=== PATIENT | female | born 1965 | race Caucasian/White ===

== ENCOUNTER 2016-05-12 13:51 | Emergency (ER) | payer BC ==
[~2016-05-12 13:51] MED LIST: ACET-654 PO; IBUP200C PO; OMEP40CA2 PO
--- NOTE | 2016-05-12 18:19 | EDDOCDS ---
Nurse's Notes [facility] Name: Jayleen Gilbert Age: 50 yrs Sex: Female : 1965 Arrival Date: 05/12/2016 Time: 13:51 Bed TR8 Private MD: Nataly [facility] Diagnosis: Inguinal hernia-RIGHT, FAT CONTAINING Presentation: 05/12 14:03 Presenting complaint: Patient states: she has had severe right sided abdominal pain kcs since Wednesday and now there is a lump there. Adult Sepsis Screening: The patient does not have new or worsening altered mentation. Patient's respiratory rate is less than 22. Systolic blood pressure is greater than 100. Patient has a qSOFA score of 0- Negative Sepsis Screen. Suicide/Homicide risk assessment- the patient denies having any suicidal and/or homicidal ideations and does not present with any other emotional, behavioral or mental health complaints. Status: Patient is not a director of cardiopulmonary services or dependent. Transition of care: patient was not received from another setting of care. 14:03 Acuity: YAN Level 3 kcs 14:03 Method Of Arrival: Walkin/Carried/Asstd kcs 18:09 Risk factors: the patient reports no vaginal bleeding. mk4 Triage Assessment: 14:06 General: Appears comfortable, well developed, well nourished, well groomed, Behavior is kcs cooperative, pleasant. Pain: Location: RLQ abdomen Pain currently is 5 out of 10 on a pain scale. Pt Declines HIV testing. Neurological: Level of Consciousness is awake, alert. Respiratory: Airway is patent Respiratory effort is even, unlabored, Respiratory pattern is regular, symmetrical. GI: Denies diarrhea, nausea, vomiting. Derm: Skin is intact, is healthy with good turgor, Skin is dry, Skin is normal. 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 Zyrtec 10 mg Oral tab 1 tab once daily as needed - PMHx: Seasonal Allergies; GERD; ectopic ; Endometriosis; - PSHx: Exploratory lap; - Social history: Smoking status: Patient uses tobacco products, light tobacco smoker. No barriers to communication noted, The patient speaks fluent Nepali. - Family history: Not pertinent. - : The pt / caregiver states he / she is not on anticoagulants. Home medication list is obtained from the patient. - Exposure Risk Screening:: None identified. Screenin:36 Screening information is obtained from the patient. Fall risk: No risks identified. mk4 Assistance ADL's: requires no assistance with activities of daily living. Abuse/DV Screen: The patient / caregiver reports he/she is: not in a situation that causes fear, pain or injury. Nutritional screening: No deficits noted. Advance Directives: Currently, there is no health care proxy. There is no active DNR order. There is no living will. There is no Power of Head Teller. Advance directive information has not previously been placed in an [facility] medical record. Further advance directive information is declined. home support is adequate. Assessment: 16:10 General: Appears in no apparent distress, pt placed in room from transit, first contact [facility] with pt , pt pleasant reading book, denies any needs or complaints awaiting Dr Shaw call return. 17:10 General: Appears in no apparent distress. Respiratory: Airway is patent Respiratory 4 effort is even, unlabored, Respiratory pattern is regular. 18:08 General: Appears in no apparent distress, comfortable, Behavior is cooperative. GI: mk4 Abdomen is flat, non- distended Bowel sounds present X 4 quads. Abd is soft and non tender. Derm: Skin is intact, is healthy with good turgor. Vital Signs: 13:54 BP 116 / 68; Pulse 66; Resp 18 S; Temp 97.4(O); Pulse Ox 100% on R/A; Weight 52.62 kg gr2 (M); Height 5 ft. 5 in. (165.10 cm) (M); Pain 8/10; 18:13 BP 125 / 72; Pulse 72; Resp 18; Temp 97.8; Pulse Ox 99% ; Pain 6/10; jam1 13:54 Body Mass Index 19.30 (52.62 kg, 165.10 cm) gr2 Vitals: 13:54 Log In Time: May 12, 2016 at 13:54. gr2 ED Course: 13:54 Patient visited by Marla Hutchison. gr2 13:54 [facility] is Private Physician. gr2 13:54 Patient moved to Waiting gr2 13:56 Patient visited by Marla Hutchison. gr2 13:56 Patient moved to Pre RCE gr2 14:04 Triage Initiated kcs 14:36 Patient moved to Triage 1 ar3 14:39 Maldonado Lutz PA is PHCP. btw 14:39 Jaqueline Thomas MD is Attending Physician. btw 14:39 Patient visited by Maldonado Lutz PA. btw 14:51 Patient moved to TR2 btw 15:02 Urine Culture Sent. ar3 15:02 Urinalysis Sent. ar3 15:21 PHCP role handed off by Maldonado Lutz PA ck7 15:21 Farooq Hewitt RPA-C is PHCP. ck7 15:23 Patient visited by Farooq Hewitt RPA-C. ck7 15:25 Patient moved to Ultrasound br3 16:09 Patient visited by Farooq Hewitt RPA-C. ck7 16:09 Patient moved to TR2 br3 16:09 Patient moved to I10 / 23 mb9 16:36 The patient / caregiver is instructed regarding the plan of care and ED course. mk4 16:36 No IV's were initiated during this patient's visit. No procedures done that require 4 assistance. 16:39 [facility] [place] Agreement was scanned into [employer] and attached to record. lg 16:40 Patient visited by Ying Luna RN. mk4 17:28 Patient visited by Ying Luna RN. mk4 17:42 Solo Shaw is Referral Physician. ck7 18:08 Patient moved to TR8 mk4 Order Results: Lab Order: Urinalysis; SPEC'M 05/12/16 14:52 Test: APPEARANCE, URINE; Value: CLEAR; Range: CLEAR; Status: F Test: COLOR, URINE; Value: STRAW; Range: YELLOW; Status: F Test: PH,URINE; Value: 6.0; Range: 5.0-9.0; Units: UNITS; Status: F Test: SPECIFIC GRAVITY URINE AUTO; Value: 1.003; Range: 1.002-1.035; Status: F Test: PROTEIN, URINE AUTO; Value: NEGATIVE; Range: NEGATIVE; Units: mg/dL; Status: F Test: GLUCOSE, URINE (UA) AUTO; Value: NEGATIVE; Range: NEGATIVE; Units: mg/dL; Status: F Test: KETONE, URINE AUTO; Value: NEGATIVE; Range: NEGATIVE; Units: mg/dL; Status: F Test: UROBILINOGEN, URINE AUTO; Value: 0.2; Range: 0.0-2.0; Units: mg/dL; Status: F Test: BILIRUBIN, URINE AUTO; Value: NEGATIVE; Range: NEGATIVE; Status: F Test: NITRITE, URINE AUTO; Value: NEGATIVE; Range: NEGATIVE; Status: F Test: LEUKOCYTE ESTERASE, URINE AUTO; Value: NEGATIVE; Range: NEGATIVE; Status: F Test: BLOOD, URINE BLOOD; Value: NEGATIVE; Range: NEGATIVE; Status: F Test: WBC, URINE AUTO; Value: 0; Range: 0-3; Units: /HPF; Status: F Test: RBC, URINE AUTO; Value: 1; Range: 0-3; Units: /HPF; Status: F Test: BACTERIA, URINE AUTO; Value: 1+; Range: NEGATIVE; Abnormal: Above high normal; Status: F Test: SQUAMOUS EPITHELIAL CELL UR AU; Value: 0; Range: 0-6; Units: /HPF; Status: F Test: HYALINE CAST, URINE AUTO; Value: 0; Range: 0-1; Units: /LPF; Status: F Outcome: 17:10 Discharge Assessment: Patient awake, alert and oriented x 3. No cognitive and/or mk4 functional deficits noted. Patient verbalized understanding of disposition instructions. Patient awake and alert. Discharge Assessment: patient administered narcotics - no. The following High Risk Discharge criteria are identified: None. Condition: good Condition: stable. No special radiology studies were completed. Property sent home with patient. 17:42 Discharge ordered by Provider. ck7 18:18 Patient left the ED. mk4 Signatures: Erika James, RN RN kcs Iliana Ramirez, GROCERY DELIVERER GROCERY DELIVERER jam1 Cirilo Trevino, River Reg lg Jayla Hutchison br3 Luz Elena Mendosa, GROCERY DELIVERER GROCERY DELIVERER ar3 Maldonado Lutz PA PA traciw Farooq Hewitt RPA-C RPA-Cck7 Marla Hutchsion gr2 Ying Luna RN RN mk4 Monroe Olivas,RN RN mb9 Corrections: (The following items were deleted from the chart) 16:37 16:10 General: Appears in no apparent distress, pt placed in room from transit, first mk4 contact with pt . mk4 MTDD
--- NOTE | 2016-05-12 18:19 | EDDOCDS ---
Physician Documentation [facility] Name: Jayleen Gilbert Age: 50 yrs Sex: Female : 1965 Arrival Date: 05/12/2016 Time: 13:51 Bed TR8 Private MD: Nataly [facility] Disposition: 05/12/16 17:42 Discharged to Home/Self Care. Impression: Inguinal hernia - RIGHT, FAT CONTAINING. - Condition is Stable. - Discharge Instructions: Inguinal Hernia, Adult. - Prescriptions for Tylenol- Codeine #3 300-30 mg Oral Tablet - take 2 tablets by ORAL route every 6 hours As needed MDD: 4 tabs; 20 tablet. - Medication Reconciliation, Local Pharmacy Hours form. - Follow up: Solo Hudson; When: 2 - 3 days; Reason: Recheck today's complaints, Continuance of care. - Problem is new. - Symptoms have improved. - Notes: RETURN TO THE ER IF THE SYMPTOMS WORSEN OR BECOME CONCERNING, FOLLOW UP WITH DR HUDSON IN NEXT 2-3 DAYS CALL FOR AN APPOINTMENT, USE MEDICATIONS NEEDED FOR PAIN Historical: - Allergies: Ceclor (Rash); - Home Meds: 1. Zyrtec 10 mg Oral tab 1 tab once daily as needed - PMHx: Seasonal Allergies; GERD; ectopic ; Endometriosis; - PSHx: Exploratory lap; - Social history: Smoking status: Patient uses tobacco products, light tobacco smoker. No barriers to communication noted, The patient speaks fluent [place]. - Family history: Not pertinent. - : The pt / caregiver states he / she is not on anticoagulants. Home medication list is obtained from the patient. - Exposure Risk Screening:: None identified. 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 5 in. (165.10 cm) (M); Pain 8/10; 18:13 BP 125 / 72; Pulse 72; Resp 18; Temp 97.8; Pulse Ox 99% ; Pain 6/10; jam1 13:54 Body Mass Index 19.30 (52.62 kg, 165.10 cm) gr2 MDM: 14:45 -US Pelvic Non-Ob Complete Ordered. EDMS 14:46 DUPLEX SCAN LIMITED (DOPPLER)+US Ordered. EDMS 14:46 Urinalysis Ordered. EDMS 14:46 Urine Culture Ordered. EDMS 14:49 Abdomen, limited US Ordered. EDMS 15:16 Financial registration complete. lg 15:37 Urinalysis Reviewed. ck7 16:39 [facility] [place] Payment Agreement was scanned into [employer] and attached to record. lg Signatures: Dispatcher [employer] EDMS Erika James, RN RN kcs Cirilo Trevino, Reg Reg lg Farooq Hewitt, RPA-C RPA-Cck7 Ying Luna RN RN mk4 The chart was reviewed and I authenticate all verbal orders and agree with the evaluation and treatment provided.Attachments: 16:39 [facility] Payment Agreement lg MTDD
--- NOTE | 2016-05-12 19:36 | REP ---
RIGHT INGUINAL ULTRASOUND: Right inguinal ultrasound is performed at the site of a palpable abnormality. Small rounded area of tissue and fluid is seen at that location measuring about 3 cm in diameter. This appears to communicate with the peritoneal cavity via a thin channel. No other adjacent abnormality is seen. There is no evidence of bowel within the structure. It is not reducible. IMPRESSION: Findings assessed above which appear to represent a small nonreducible right inguinal hernia containing fat and fluid but no bowel. This may represent a small incarcerated hernia at this location. Signed by Mario Sauer MD 05/13/2016 05:15 P
--- NOTE | 2016-05-12 19:56 | REP ---
PELVIC ULTRASOUND: Real-time sonographic evaluation of the pelvis performed utilizing transabdominal technique. The bladder measures 3.7 x 2.3 x 5.0 cm. Uterus measures 7.6 x 3.7 x 4.5 cm. Endometrial stripe measures 2 mm with no endometrial fluid collection. Ovaries are normal in size and echotexture, the right ovary measuring 2.4 x 2.0 x 2.6 cm and left ovary 2.4 x 1.9 x 2.1 cm. There is no adnexal mass or free fluid. There is no torsion. Blood flow is seen in each ovary with duplex Doppler evaluation, RI of the right ovary 0.56 and left ovary 0.70. Dominant follicle in the right ovary 1.9 cm in diameter and dominant follicle left ovary 1.9 cm in diameter. IMPRESSION: Negative pelvic ultrasound as discussed above. No torsion. Signed by Mario Sauer MD 05/13/2016 05:15 P
--- NOTE | 2016-05-14 19:18 | EDDOCDS ---
Physician Documentation [facility] Name: Jayleen Gilbert Age: 50 yrs Sex: Female : 1965 Arrival Date: 05/12/2016 Time: 13:51 Bed TR8 Private MD: Nataly [facility] Disposition: 05/12/16 17:42 Discharged to Home/Self Care. Impression: Inguinal hernia - RIGHT, FAT CONTAINING. - Condition is Stable. - Discharge Instructions: Inguinal Hernia, Adult. - Prescriptions for Tylenol- Codeine #3 300-30 mg Oral Tablet - take 2 tablets by ORAL route every 6 hours As needed MDD: 4 tabs; 20 tablet. - Medication Reconciliation, Local Pharmacy Hours form. - Follow up: Solo Hudson; When: 2 - 3 days; Reason: Recheck today's complaints, Continuance of care. - Problem is new. - Symptoms have improved. - Notes: RETURN TO THE ER IF THE SYMPTOMS WORSEN OR BECOME CONCERNING, FOLLOW UP WITH DR HUDSON IN NEXT 2-3 DAYS CALL FOR AN APPOINTMENT, USE MEDICATIONS NEEDED FOR PAIN Historical: - Allergies: Ceclor (Rash); - Home Meds: 1. Zyrtec 10 mg Oral tab 1 tab once daily as needed - PMHx: Seasonal Allergies; GERD; ectopic ; Endometriosis; - PSHx: Exploratory lap; - Social history: Smoking status: Patient uses tobacco products, light tobacco smoker. No barriers to communication noted, The patient speaks fluent Mohawk. - Family history: Not pertinent. - : The pt / caregiver states he / she is not on anticoagulants. Home medication list is obtained from the patient. - Exposure Risk Screening:: None identified. 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 5 in. (165.10 cm) (M); Pain 8/10; 18:13 BP 125 / 72; Pulse 72; Resp 18; Temp 97.8; Pulse Ox 99% ; Pain 6/10; jam1 13:54 Body Mass Index 19.30 (52.62 kg, 165.10 cm) gr2 MDM: 14:45 -US Pelvic Non-Ob Complete Ordered. EDMS 14:46 DUPLEX SCAN LIMITED (DOPPLER)+US Ordered. EDMS 14:46 Urinalysis Ordered. EDMS 14:46 Urine Culture Ordered. EDMS 14:49 Abdomen, limited US Ordered. EDMS 15:16 Financial registration complete. lg 15:37 Urinalysis Reviewed. ck7 16:39 [facility] [place] Payment Agreement was scanned into [employer] and attached to record. lg 05/13 09:26 T-Sheet-- Draft Copy was scanned into [employer] and attached to record. gb 09:27 Radiology Report was scanned into [employer] and attached to record. gb Signatures: Dispatcher [employer] Erika Sims, RN RN kcs Dalia Bennett, Reg Reg gb Cirilo Trevino, Reg Reg lg Farooq Hewitt, RPA-C RPA-Cck7 Ying Luna RN RN mk4 The chart was reviewed and I authenticate all verbal orders and agree with the evaluation and treatment provided.Attachments: 05/12 16:39 [facility] Payment Agreement lg 05/13 09:26 T-Sheet-- Draft Copy gb Chart Complete MTDD
--- NOTE | 2016-05-14 19:18 | EDDOCDS ---
Nurse's Notes [facility] Name: Jayleen Gilbert Age: 50 yrs Sex: Female : 1965 Arrival Date: 05/12/2016 Time: 13:51 Bed TR8 Private MD: [facility] Diagnosis: Inguinal hernia-RIGHT, FAT CONTAINING Presentation: 05/12 14:03 Presenting complaint: Patient states: she has had severe right sided abdominal pain kcs since Wednesday and now there is a lump there. Adult Sepsis Screening: The patient does not have new or worsening altered mentation. Patient's respiratory rate is less than 22. Systolic blood pressure is greater than 100. Patient has a qSOFA score of 0- Negative Sepsis Screen. Suicide/Homicide risk assessment- the patient denies having any suicidal and/or homicidal ideations and does not present with any other emotional, behavioral or mental health complaints. 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 Transition of care: patient was not received from another setting of care. 14:03 Acuity: YAN Level 3 kcs 14:03 Method Of Arrival: Walkin/Carried/Asstd kcs 18:09 Risk factors: the patient reports no vaginal bleeding. mk4 Triage Assessment: 14:06 General: Appears comfortable, well developed, well nourished, well groomed, Behavior is kcs cooperative, pleasant. Pain: Location: RLQ abdomen Pain currently is 5 out of 10 on a pain scale. Pt Declines HIV testing. Neurological: Level of Consciousness is awake, alert. Respiratory: Airway is patent Respiratory effort is even, unlabored, Respiratory pattern is regular, symmetrical. GI: Denies diarrhea, nausea, vomiting. Derm: Skin is intact, is healthy with good turgor, Skin is dry, Skin is normal. 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 Zyrtec 10 mg Oral tab 1 tab once daily as needed - PMHx: Seasonal Allergies; GERD; ectopic ; Endometriosis; - PSHx: Exploratory lap; - Social history: Smoking status: Patient uses tobacco products, light tobacco smoker. No barriers to communication noted, The patient speaks fluent Occitan. - Family history: Not pertinent. - : The pt / caregiver states he / she is not on anticoagulants. Home medication list is obtained from the patient. - Exposure Risk Screening:: None identified. Screenin:36 Screening information is obtained from the patient. Fall risk: No risks identified. mk4 Assistance ADL's: requires no assistance with activities of daily living. Abuse/DV Screen: The patient / caregiver reports he/she is: not in a situation that causes fear, pain or injury. Nutritional screening: No deficits noted. Advance Directives: Currently, there is no health care proxy. There is no active DNR order. There is no living will. There is no Power of Machine Overhauler. Advance directive information has not previously been placed in an [facility] medical record. Further advance directive information is declined. home support is adequate. Assessment: 16:10 General: Appears in no apparent distress, pt placed in room from transit, first contact [facility] with pt , pt pleasant reading book, denies any needs or complaints awaiting Dr Shaw call return. 17:10 General: Appears in no apparent distress. Respiratory: Airway is patent Respiratory 4 effort is even, unlabored, Respiratory pattern is regular. 18:08 General: Appears in no apparent distress, comfortable, Behavior is cooperative. GI: mk4 Abdomen is flat, non- distended Bowel sounds present X 4 quads. Abd is soft and non tender. Derm: Skin is intact, is healthy with good turgor. Vital Signs: 13:54 BP 116 / 68; Pulse 66; Resp 18 S; Temp 97.4(O); Pulse Ox 100% on R/A; Weight 52.62 kg gr2 (M); Height 5 ft. 5 in. (165.10 cm) (M); Pain 8/10; 18:13 BP 125 / 72; Pulse 72; Resp 18; Temp 97.8; Pulse Ox 99% ; Pain 6/10; jam1 13:54 Body Mass Index 19.30 (52.62 kg, 165.10 cm) gr2 Vitals: 13:54 Log In Time: May 12, 2016 at 13:54. gr2 ED Course: 13:54 Patient visited by Marla Hutchison. gr2 13:54 [facility] is Private Physician. gr2 13:54 Patient moved to Waiting gr2 13:56 Patient visited by Marla Hutchison. gr2 13:56 Patient moved to Pre RCE gr2 14:04 Triage Initiated kcs 14:36 Patient moved to Triage 1 ar3 14:39 Maldonado Lutz PA is PHCP. btw 14:39 Jaqueline Thomas MD is Attending Physician. btw 14:39 Patient visited by Maldonado Lutz PA. btw 14:51 Patient moved to TR2 btw 15:02 Urine Culture Sent. ar3 15:02 Urinalysis Sent. ar3 15:21 PHCP role handed off by Maldonado Lutz PA ck7 15:21 Farooq Hewitt RPA-C is PHCP. ck7 15:23 Patient visited by Farooq Hewitt RPA-C. ck7 15:25 Patient moved to Ultrasound br3 16:09 Patient visited by Farooq Hewitt RPA-C. ck7 16:09 Patient moved to TR2 br3 16:09 Patient moved to I10 / 23 mb9 16:36 The patient / caregiver is instructed regarding the plan of care and ED course. mk4 16:36 No IV's were initiated during this patient's visit. No procedures done that require [facility] assistance. 16:39 [facility] [place] Agreement was scanned into [employer] and attached to record. lg 16:40 Patient visited by Ying Luna RN. mk4 17:28 Patient visited by Ying Luna RN. mk4 17:42 Solo Shaw is Referral Physician. ck7 18:08 Patient moved to TR8 mk4 19:50 Abdomen, limited US Returned. EDMS 20:40 -US Pelvic Non-Ob Complete Returned. EDMS 20:40 DUPLEX SCAN LIMITED (DOPPLER)+US Returned. EDMS 0104 09:26 T-Sheet-- Draft Copy was scanned into [employer] and attached to record. gb 09:27 Radiology Report was scanned into [employer] and attached to record. gb Order Results: Lab Order: Urinalysis; SPEC'M 05/12/16 14:52 Test: APPEARANCE, URINE; Value: CLEAR; Range: CLEAR; Status: F Test: COLOR, URINE; Value: STRAW; Range: YELLOW; Status: F Test: PH,URINE; Value: 6.0; Range: 5.0-9.0; Units: UNITS; Status: F Test: SPECIFIC GRAVITY URINE AUTO; Value: 1.003; Range: 1.002-1.035; Status: F Test: PROTEIN, URINE AUTO; Value: NEGATIVE; Range: NEGATIVE; Units: mg/dL; Status: F Test: GLUCOSE, URINE (UA) AUTO; Value: NEGATIVE; Range: NEGATIVE; Units: mg/dL; Status: F Test: KETONE, URINE AUTO; Value: NEGATIVE; Range: NEGATIVE; Units: mg/dL; Status: F Test: UROBILINOGEN, URINE AUTO; Value: 0.2; Range: 0.0-2.0; Units: mg/dL; Status: F Test: BILIRUBIN, URINE AUTO; Value: NEGATIVE; Range: NEGATIVE; Status: F Test: NITRITE, URINE AUTO; Value: NEGATIVE; Range: NEGATIVE; Status: F Test: LEUKOCYTE ESTERASE, URINE AUTO; Value: NEGATIVE; Range: NEGATIVE; Status: F Test: BLOOD, URINE BLOOD; Value: NEGATIVE; Range: NEGATIVE; Status: F Test: WBC, URINE AUTO; Value: 0; Range: 0-3; Units: /HPF; Status: F Test: RBC, URINE AUTO; Value: 1; Range: 0-3; Units: /HPF; Status: F Test: BACTERIA, URINE AUTO; Value: 1+; Range: NEGATIVE; Abnormal: Above high normal; Status: F Test: SQUAMOUS EPITHELIAL CELL UR AU; Value: 0; Range: 0-6; Units: /HPF; Status: F Test: HYALINE CAST, URINE AUTO; Value: 0; Range: 0-1; Units: /LPF; Status: F Lab Order: Urine Culture; SPEC'M 05/12/16 14:52 Test: URINE CULTURE; Value: URINE CULTURE RESULT NO GROWTH; Status: F Radiology Order: -US Pelvic Non-Ob Complete Test: -US Pelvic Non-Ob Complete REASON FOR EXAMINATION: ? hernia;Adnexal Pain r/o Torsion; PELVIC ULTRASOUND:; ; Real-time sonographic evaluation of the pelvis performed utilizing transabdominal; technique. The bladder measures 3.7 x 2.3 x 5.0 cm. Uterus measures 7.6 x 3.7 x; 4.5 cm. Endometrial stripe measures 2 mm with no endometrial fluid collection.; Ovaries are normal in size and echotexture, the right ovary measuring 2.4 x 2.0 x; 2.6 cm and left ovary 2.4 x 1.9 x 2.1 cm. There is no adnexal mass or free fluid.; There is no torsion. Blood flow is seen in each ovary with duplex Doppler; evaluation, RI of the right ovary 0.56 and left ovary 0.70. Dominant follicle in; the right ovary 1.9 cm in diameter and dominant follicle left ovary 1.9 cm in; diameter.; ; IMPRESSION:; ; Negative pelvic ultrasound as discussed above. No torsion.; ; ; Signed by; Mario Sauer MD 05/13/2016 05:15 P; Radiology Order: DUPLEX SCAN LIMITED (DOPPLER)+US Test: DUPLEX SCAN LIMITED (DOPPLER)+US REASON FOR EXAMINATION: ? R inguinal hernia;Adnexal Pain r/o Torsion; PELVIC ULTRASOUND:; ; Real-time sonographic evaluation of the pelvis performed utilizing transabdominal; technique. The bladder measures 3.7 x 2.3 x 5.0 cm. Uterus measures 7.6 x 3.7 x; 4.5 cm. Endometrial stripe measures 2 mm with no endometrial fluid collection.; Ovaries are normal in size and echotexture, the right ovary measuring 2.4 x 2.0 x; 2.6 cm and left ovary 2.4 x 1.9 x 2.1 cm. There is no adnexal mass or free fluid.; There is no torsion. Blood flow is seen in each ovary with duplex Doppler; evaluation, RI of the right ovary 0.56 and left ovary 0.70. Dominant follicle in; the right ovary 1.9 cm in diameter and dominant follicle left ovary 1.9 cm in; diameter.; ; IMPRESSION:; ; Negative pelvic ultrasound as discussed above. No torsion.; ; ; Signed by; Mario Sauer MD 05/13/2016 05:15 P; Radiology Order: Abdomen, limited US Test: Abdomen, limited US REASON FOR EXAMINATION: ? HERNIA; RIGHT INGUINAL ULTRASOUND:; ; Right inguinal ultrasound is performed at the site of a palpable abnormality.; Small rounded area of tissue and fluid is seen at that location measuring about 3; cm in diameter. This appears to communicate with the peritoneal cavity via a thin; channel. No other adjacent abnormality is seen. There is no evidence of bowel; within the structure. It is not reducible.; ; IMPRESSION:; ; Findings assessed above which appear to represent a small nonreducible right; inguinal hernia containing fat and fluid but no bowel. This may represent a small; incarcerated hernia at this location.; ; ; Signed by; Mario Sauer MD 05/13/2016 05:15 P; Outcome: 05/12 17:10 Discharge Assessment: Patient awake, alert and oriented x 3. No cognitive and/or mk4 functional deficits noted. Patient verbalized understanding of disposition instructions. Patient awake and alert. Discharge Assessment: patient administered narcotics - no. The following High Risk Discharge criteria are identified: None. Condition: good Condition: stable. No special radiology studies were completed. Property sent home with patient. 17:42 Discharge ordered by Provider. ck7 18:18 Patient left the ED. mk4 Signatures: Dispatcher [employer] EDMS Erika James, RN RN kcs Iliana Ramirez, RISK COMPLIANCE ANALYST RISK COMPLIANCE ANALYST jam1 Dalia Bennett, Reg Reg gb Ganemiliano, LoriLee, Reg Reg lg Jayla Hutchison br3 Luz Elena Mendosa, RISK COMPLIANCE ANALYST RISK COMPLIANCE ANALYST ar3 Maldonado Lutz PA PA btw Farooq Hewitt, RPA-C RPA-Cck7 Marla Hutchison gr2 Ying Luna RN RN mk4 Monroe Olivas RN RN mb9 Corrections: (The following items were deleted from the chart) 16:37 16:10 General: Appears in no apparent distress, pt placed in room from transit, first mk4 contact with pt . mk4 Chart Complete MTDD
--- NOTE | 2016-05-14 19:18 | EDDOCDS ---
Physician Documentation [facility] Name: Jayleen Gilbert Age: 50 yrs Sex: Female : 1965 Arrival Date: 05/12/2016 Time: 13:51 Bed TR8 Private MD: Nataly [facility] Disposition: 05/12/16 17:42 Discharged to Home/Self Care. Impression: Inguinal hernia - RIGHT, FAT CONTAINING. - Condition is Stable. - Discharge Instructions: Inguinal Hernia, Adult. - Prescriptions for Tylenol- Codeine #3 300-30 mg Oral Tablet - take 2 tablets by ORAL route every 6 hours As needed MDD: 4 tabs; 20 tablet. - Medication Reconciliation, Local Pharmacy Hours form. - Follow up: Solo Hudson; When: 2 - 3 days; Reason: Recheck today's complaints, Continuance of care. - Problem is new. - Symptoms have improved. - Notes: RETURN TO THE ER IF THE SYMPTOMS WORSEN OR BECOME CONCERNING, FOLLOW UP WITH DR HUDSON IN NEXT 2-3 DAYS CALL FOR AN APPOINTMENT, USE MEDICATIONS NEEDED FOR PAIN Historical: - Allergies: Ceclor (Rash); - Home Meds: 1. Zyrtec 10 mg Oral tab 1 tab once daily as needed - PMHx: Seasonal Allergies; GERD; ectopic ; Endometriosis; - PSHx: Exploratory lap; - Social history: Smoking status: Patient uses tobacco products, light tobacco smoker. No barriers to communication noted, The patient speaks fluent Bengali. - Family history: Not pertinent. - : The pt / caregiver states he / she is not on anticoagulants. Home medication list is obtained from the patient. - Exposure Risk Screening:: None identified. 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 5 in. (165.10 cm) (M); Pain 8/10; 18:13 BP 125 / 72; Pulse 72; Resp 18; Temp 97.8; Pulse Ox 99% ; Pain 6/10; jam1 13:54 Body Mass Index 19.30 (52.62 kg, 165.10 cm) gr2 MDM: 14:45 -US Pelvic Non-Ob Complete Ordered. EDMS 14:46 DUPLEX SCAN LIMITED (DOPPLER)+US Ordered. EDMS 14:46 Urinalysis Ordered. EDMS 14:46 Urine Culture Ordered. EDMS 14:49 Abdomen, limited US Ordered. EDMS 15:16 Financial registration complete. lg 15:37 Urinalysis Reviewed. ck7 16:39 [facility] [place] Agreement was scanned into [employer] and attached to record. lg 05/13 09:26 T-Sheet-- Draft Copy was scanned into [employer] and attached to record. gb 09:27 Radiology Report was scanned into [employer] and attached to record. gb Signatures: Dispatcher [employer] Erika Sims, RN RN kcs Dalia Bennett, Reg Reg gb Cirilo Trevino, Reg Reg lg Farooq Hewitt, RPA-C RPA-Cck7 Ying Luna RN RN mk4 The chart was reviewed and I authenticate all verbal orders and agree with the evaluation and treatment provided.Attachments: 05/12 16:39 [facility] Payment Agreement lg 05/13 09:26 T-Sheet-- Draft Copy gb Chart Complete MTDD
--- NOTE | 2016-05-15 21:19 | EDDOCDS ---
Physician Documentation [facility] Name: Jayleen Gilbert Age: 50 yrs Sex: Female : 1965 Arrival Date: 05/12/2016 Time: 13:51 Bed TR8 Private MD: Nataly [facility] Disposition: 05/12/16 17:42 Discharged to Home/Self Care. Impression: Inguinal hernia - RIGHT, FAT CONTAINING. - Condition is Stable. - Discharge Instructions: Inguinal Hernia, Adult. - Prescriptions for Tylenol- Codeine #3 300-30 mg Oral Tablet - take 2 tablets by ORAL route every 6 hours As needed MDD: 4 tabs; 20 tablet. - Medication Reconciliation, Local Pharmacy Hours form. - Follow up: Solo Valencia; When: 2 - 3 days; Reason: Recheck today's complaints, Continuance of care. - Problem is new. - Symptoms have improved. - Notes: RETURN TO THE ER IF THE SYMPTOMS WORSEN OR BECOME CONCERNING, FOLLOW UP WITH DR VALENCIA IN NEXT 2-3 DAYS CALL FOR AN APPOINTMENT, USE MEDICATIONS NEEDED FOR PAIN Historical: - Allergies: Ceclor (Rash); - Home Meds: 1. Zyrtec 10 mg Oral tab 1 tab once daily as needed - PMHx: Seasonal Allergies; GERD; ectopic ; Endometriosis; - PSHx: Exploratory lap; - Social history: Smoking status: Patient uses tobacco products, light tobacco smoker. No barriers to communication noted, The patient speaks fluent Macedonian. - Family history: Not pertinent. - : The pt / caregiver states he / she is not on anticoagulants. Home medication list is obtained from the patient. - Exposure Risk Screening:: None identified. 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 5 in. (165.10 cm) (M); Pain 8/10; 18:13 BP 125 / 72; Pulse 72; Resp 18; Temp 97.8; Pulse Ox 99% ; Pain 6/10; jam1 13:54 Body Mass Index 19.30 (52.62 kg, 165.10 cm) gr2 MDM: 14:45 -US Pelvic Non-Ob Complete Ordered. EDMS 14:46 DUPLEX SCAN LIMITED (DOPPLER)+US Ordered. EDMS 14:46 Urinalysis Ordered. EDMS 14:46 Urine Culture Ordered. EDMS 14:49 Abdomen, limited US Ordered. EDMS 15:16 Financial registration complete. lg 15:37 Urinalysis Reviewed. ck7 16:39 [facility] [place] Payment Agreement was scanned into [employer] and attached to record. lg 05/13 09:26 T-Sheet-- Draft Copy was scanned into [employer] and attached to record. gb 09:27 Radiology Report was scanned into [employer] and attached to record. gb Addendum: 05/15/2016 21:18 Radiology Callback: Radiology results faxed to primary care physician/provider. dr flakita valencia faxed formal report of abdl us for mlg. Signatures: Dispatcher [employer] EDCarla Padilla MD MD ml Sleeman, Kacey, RN RN Dalia Gary, Reg Reg gb Cirilo Trevino, Reg Reg lg Farooq Hewitt, RPA-C RPA-Cck7 Ying Luna, RN RN mk4 The chart was reviewed and I authenticate all verbal orders and agree with the evaluation and treatment provided.Attachments: 05/12 16:39 [facility] [place] Payment Agreement lg 05/13 09:26 T-Sheet-- Draft Copy gb MTDD
--- NOTE | 2016-05-15 21:19 | EDDOCDS ---
Nurse's Notes [facility] Name: Jayleen Gilbert Age: 50 yrs Sex: Female : 1965 Arrival Date: 05/12/2016 Time: 13:51 Bed TR8 Private MD: Nataly [facility]ly [facility], [facility] Diagnosis: Inguinal hernia-RIGHT, FAT CONTAINING Presentation: 05/12 14:03 Presenting complaint: Patient states: she has had severe right sided abdominal pain kcs since Wednesday and now there is a lump there. Adult Sepsis Screening: The patient does not have new or worsening altered mentation. Patient's respiratory rate is less than 22. Systolic blood pressure is greater than 100. Patient has a qSOFA score of 0- Negative Sepsis Screen. Suicide/Homicide risk assessment- the patient denies having any suicidal and/or homicidal ideations and does not present with any other emotional, behavioral or mental health complaints. Status: Patient is not a resident services coordinator or dependent. Transition of care: patient was not received from another setting of care. 14:03 Acuity: YAN Level 3 kcs 14:03 Method Of Arrival: Walkin/Carried/Asstd kcs 18:09 Risk factors: the patient reports no vaginal bleeding. mk4 Triage Assessment: 14:06 General: Appears comfortable, well developed, well nourished, well groomed, Behavior is kcs cooperative, pleasant. Pain: Location: RLQ abdomen Pain currently is 5 out of 10 on a pain scale. Pt Declines HIV testing. Neurological: Level of Consciousness is awake, alert. Respiratory: Airway is patent Respiratory effort is even, unlabored, Respiratory pattern is regular, symmetrical. GI: Denies diarrhea, nausea, vomiting. Derm: Skin is intact, is healthy with good turgor, Skin is dry, Skin is normal. 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 Zyrtec 10 mg Oral tab 1 tab once daily as needed - PMHx: Seasonal Allergies; GERD; ectopic ; Endometriosis; - PSHx: Exploratory lap; - Social history: Smoking status: Patient uses tobacco products, light tobacco smoker. No barriers to communication noted, The patient speaks fluent Albanian. - Family history: Not pertinent. - : The pt / caregiver states he / she is not on anticoagulants. Home medication list is obtained from the patient. - Exposure Risk Screening:: None identified. Screenin:36 Screening information is obtained from the patient. Fall risk: No risks identified. mk4 Assistance ADL's: requires no assistance with activities of daily living. Abuse/DV Screen: The patient / caregiver reports he/she is: not in a situation that causes fear, pain or injury. Nutritional screening: No deficits noted. Advance Directives: Currently, there is no health care proxy. There is no active DNR order. There is no living will. 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 Advance directive information has not previously been placed in an [facility] medical record. Further advance directive information is declined. home support is adequate. Assessment: 16:10 General: Appears in no apparent distress, pt placed in room from transit, first contact [facility] with pt , pt pleasant reading book, denies any needs or complaints awaiting Dr Shaw call return. 17:10 General: Appears in no apparent distress. Respiratory: Airway is patent Respiratory 4 effort is even, unlabored, Respiratory pattern is regular. 18:08 General: Appears in no apparent distress, comfortable, Behavior is cooperative. GI: mk4 Abdomen is flat, non- distended Bowel sounds present X 4 quads. Abd is soft and non tender. Derm: Skin is intact, is healthy with good turgor. Vital Signs: 13:54 BP 116 / 68; Pulse 66; Resp 18 S; Temp 97.4(O); Pulse Ox 100% on R/A; Weight 52.62 kg gr2 (M); Height 5 ft. 5 in. (165.10 cm) (M); Pain 8/10; 18:13 BP 125 / 72; Pulse 72; Resp 18; Temp 97.8; Pulse Ox 99% ; Pain 6/10; jam1 13:54 Body Mass Index 19.30 (52.62 kg, 165.10 cm) gr2 Vitals: 13:54 Log In Time: May 12, 2016 at 13:54. gr2 ED Course: 13:54 Patient visited by Marla Hutchison. gr2 13:54 [facility] is Private Physician. gr2 13:54 Patient moved to Waiting gr2 13:56 Patient visited by Marla Hutchison. gr2 13:56 Patient moved to Pre RCE gr2 14:04 Triage Initiated kcs 14:36 Patient moved to Triage 1 ar3 14:39 Maldonado Lutz PA is PHCP. btw 14:39 Jaqueline Thomas MD is Attending Physician. btw 14:39 Patient visited by Maldonado Lutz PA. btw 14:51 Patient moved to TR2 btw 15:02 Urine Culture Sent. ar3 15:02 Urinalysis Sent. ar3 15:21 PHCP role handed off by Malodnado Lutz PA ck7 15:21 Farooq Hewitt RPA-C is PHCP. ck7 15:23 Patient visited by Farooq Hewitt RPA-C. ck7 15:25 Patient moved to Ultrasound br3 16:09 Patient visited by Farooq Hewitt RPA-C. ck7 16:09 Patient moved to TR2 br3 16:09 Patient moved to I10 / 23 mb9 16:36 The patient / caregiver is instructed regarding the plan of care and ED course. mk4 16:36 No IV's were initiated during this patient's visit. No procedures done that require [facility] assistance. 16:39 [facility] Payment Agreement was scanned into [employer] and attached to record. lg 16:40 Patient visited by Ying Luna RN. mk4 17:28 Patient visited by Ying Luna RN. mk4 17:42 Solo Shaw is Referral Physician. ck7 18:08 Patient moved to TR8 mk4 19:50 Abdomen, limited US Returned. EDMS 20:40 -US Pelvic Non-Ob Complete Returned. EDMS 20:40 DUPLEX SCAN LIMITED (DOPPLER)+US Returned. EDMS 0104 09:26 T-Sheet-- Draft Copy was scanned into [employer] and attached to record. gb 09:27 Radiology Report was scanned into [employer] and attached to record. gb Order Results: Lab Order: Urinalysis; SPEC'M 05/12/16 14:52 Test: APPEARANCE, URINE; Value: CLEAR; Range: CLEAR; Status: F Test: COLOR, URINE; Value: STRAW; Range: YELLOW; Status: F Test: PH,URINE; Value: 6.0; Range: 5.0-9.0; Units: UNITS; Status: F Test: SPECIFIC GRAVITY URINE AUTO; Value: 1.003; Range: 1.002-1.035; Status: F Test: PROTEIN, URINE AUTO; Value: NEGATIVE; Range: NEGATIVE; Units: mg/dL; Status: F Test: GLUCOSE, URINE (UA) AUTO; Value: NEGATIVE; Range: NEGATIVE; Units: mg/dL; Status: F Test: KETONE, URINE AUTO; Value: NEGATIVE; Range: NEGATIVE; Units: mg/dL; Status: F Test: UROBILINOGEN, URINE AUTO; Value: 0.2; Range: 0.0-2.0; Units: mg/dL; Status: F Test: BILIRUBIN, URINE AUTO; Value: NEGATIVE; Range: NEGATIVE; Status: F Test: NITRITE, URINE AUTO; Value: NEGATIVE; Range: NEGATIVE; Status: F Test: LEUKOCYTE ESTERASE, URINE AUTO; Value: NEGATIVE; Range: NEGATIVE; Status: F Test: BLOOD, URINE BLOOD; Value: NEGATIVE; Range: NEGATIVE; Status: F Test: WBC, URINE AUTO; Value: 0; Range: 0-3; Units: /HPF; Status: F Test: RBC, URINE AUTO; Value: 1; Range: 0-3; Units: /HPF; Status: F Test: BACTERIA, URINE AUTO; Value: 1+; Range: NEGATIVE; Abnormal: Above high normal; Status: F Test: SQUAMOUS EPITHELIAL CELL UR AU; Value: 0; Range: 0-6; Units: /HPF; Status: F Test: HYALINE CAST, URINE AUTO; Value: 0; Range: 0-1; Units: /LPF; Status: F Lab Order: Urine Culture; SPEC'M 05/12/16 14:52 Test: URINE CULTURE; Value: URINE CULTURE RESULT NO GROWTH; Status: F Radiology Order: -US Pelvic Non-Ob Complete Test: -US Pelvic Non-Ob Complete REASON FOR EXAMINATION: ? hernia;Adnexal Pain r/o Torsion; PELVIC ULTRASOUND:; ; Real-time sonographic evaluation of the pelvis performed utilizing transabdominal; technique. The bladder measures 3.7 x 2.3 x 5.0 cm. Uterus measures 7.6 x 3.7 x; 4.5 cm. Endometrial stripe measures 2 mm with no endometrial fluid collection.; Ovaries are normal in size and echotexture, the right ovary measuring 2.4 x 2.0 x; 2.6 cm and left ovary 2.4 x 1.9 x 2.1 cm. There is no adnexal mass or free fluid.; There is no torsion. Blood flow is seen in each ovary with duplex Doppler; evaluation, RI of the right ovary 0.56 and left ovary 0.70. Dominant follicle in; the right ovary 1.9 cm in diameter and dominant follicle left ovary 1.9 cm in; diameter.; ; IMPRESSION:; ; Negative pelvic ultrasound as discussed above. No torsion.; ; ; Signed by; Mario Sauer MD 05/13/2016 05:15 P; Radiology Order: DUPLEX SCAN LIMITED (DOPPLER)+US Test: DUPLEX SCAN LIMITED (DOPPLER)+US REASON FOR EXAMINATION: ? R inguinal hernia;Adnexal Pain r/o Torsion; PELVIC ULTRASOUND:; ; Real-time sonographic evaluation of the pelvis performed utilizing transabdominal; technique. The bladder measures 3.7 x 2.3 x 5.0 cm. Uterus measures 7.6 x 3.7 x; 4.5 cm. Endometrial stripe measures 2 mm with no endometrial fluid collection.; Ovaries are normal in size and echotexture, the right ovary measuring 2.4 x 2.0 x; 2.6 cm and left ovary 2.4 x 1.9 x 2.1 cm. There is no adnexal mass or free fluid.; There is no torsion. Blood flow is seen in each ovary with duplex Doppler; evaluation, RI of the right ovary 0.56 and left ovary 0.70. Dominant follicle in; the right ovary 1.9 cm in diameter and dominant follicle left ovary 1.9 cm in; diameter.; ; IMPRESSION:; ; Negative pelvic ultrasound as discussed above. No torsion.; ; ; Signed by; Mario Sauer MD 05/13/2016 05:15 P; Radiology Order: Abdomen, limited US Test: Abdomen, limited US REASON FOR EXAMINATION: ? HERNIA; RIGHT INGUINAL ULTRASOUND:; ; Right inguinal ultrasound is performed at the site of a palpable abnormality.; Small rounded area of tissue and fluid is seen at that location measuring about 3; cm in diameter. This appears to communicate with the peritoneal cavity via a thin; channel. No other adjacent abnormality is seen. There is no evidence of bowel; within the structure. It is not reducible.; ; IMPRESSION:; ; Findings assessed above which appear to represent a small nonreducible right; inguinal hernia containing fat and fluid but no bowel. This may represent a small; incarcerated hernia at this location.; ; ; Signed by; Mario Sauer MD 05/13/2016 05:15 P; Outcome: 05/12 17:10 Discharge Assessment: Patient awake, alert and oriented x 3. No cognitive and/or mk4 functional deficits noted. Patient verbalized understanding of disposition instructions. Patient awake and alert. Discharge Assessment: patient administered narcotics - no. The following High Risk Discharge criteria are identified: None. Condition: good Condition: stable. No special radiology studies were completed. Property sent home with patient. 17:42 Discharge ordered by Provider. ck7 18:18 Patient left the ED. mk4 Signatures: Dispatcher [employer] EDMS Erika James, RN RN kcs Iliana Ramirez, ECO INDUSTRIAL DEVELOPMENT CONSULTANT ECO INDUSTRIAL DEVELOPMENT CONSULTANT jam1 Dalia Bennett, Reg Reg gb Ganemiliano, LoriLee, Reg Reg lg Jayla Hutchison br3 Luz Elena Mendosa, ECO INDUSTRIAL DEVELOPMENT CONSULTANT ECO INDUSTRIAL DEVELOPMENT CONSULTANT ar3 Maldonado Lutz PA PA btw Farooq Hewitt, RPA-C RPA-Cck7 Marla Hutchison gr2 Ying Luna RN RN mk4 Monroe Olivas RN RN mb9 Corrections: (The following items were deleted from the chart) 16:37 16:10 General: Appears in no apparent distress, pt placed in room from transit, first mk4 contact with pt . mk4 MTDD
--- NOTE | 2016-05-15 21:19 | EDDOCDS ---
Physician Documentation [facility] Name: Jayleen Gilbert Age: 50 yrs Sex: Female : 1965 Arrival Date: 05/12/2016 Time: 13:51 Bed TR8 Private MD: Nataly [facility] Disposition: 05/12/16 17:42 Discharged to Home/Self Care. Impression: Inguinal hernia - RIGHT, FAT CONTAINING. - Condition is Stable. - Discharge Instructions: Inguinal Hernia, Adult. - Prescriptions for Tylenol- Codeine #3 300-30 mg Oral Tablet - take 2 tablets by ORAL route every 6 hours As needed MDD: 4 tabs; 20 tablet. - Medication Reconciliation, Local Pharmacy Hours form. - Follow up: Solo Valencia; When: 2 - 3 days; Reason: Recheck today's complaints, Continuance of care. - Problem is new. - Symptoms have improved. - Notes: RETURN TO THE ER IF THE SYMPTOMS WORSEN OR BECOME CONCERNING, FOLLOW UP WITH DR VALENCIA IN NEXT 2-3 DAYS CALL FOR AN APPOINTMENT, USE MEDICATIONS NEEDED FOR PAIN Historical: - Allergies: Ceclor (Rash); - Home Meds: 1. Zyrtec 10 mg Oral tab 1 tab once daily as needed - PMHx: Seasonal Allergies; GERD; ectopic ; Endometriosis; - PSHx: Exploratory lap; - Social history: Smoking status: Patient uses tobacco products, light tobacco smoker. No barriers to communication noted, The patient speaks fluent Greenlandic. - Family history: Not pertinent. - : The pt / caregiver states he / she is not on anticoagulants. Home medication list is obtained from the patient. - Exposure Risk Screening:: None identified. 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 5 in. (165.10 cm) (M); Pain 8/10; 18:13 BP 125 / 72; Pulse 72; Resp 18; Temp 97.8; Pulse Ox 99% ; Pain 6/10; jam1 13:54 Body Mass Index 19.30 (52.62 kg, 165.10 cm) gr2 MDM: 14:45 -US Pelvic Non-Ob Complete Ordered. EDMS 14:46 DUPLEX SCAN LIMITED (DOPPLER)+US Ordered. EDMS 14:46 Urinalysis Ordered. EDMS 14:46 Urine Culture Ordered. EDMS 14:49 Abdomen, limited US Ordered. EDMS 15:16 Financial registration complete. lg 15:37 Urinalysis Reviewed. ck7 16:39 [facility] Payment Agreement was scanned into [employer] and attached to record. lg 05/13 09:26 T-Sheet-- Draft Copy was scanned into [employer] and attached to record. gb 09:27 Radiology Report was scanned into [facility] and attached to record. gb Addendum: 05/15/2016 21:18 Radiology Callback: Radiology results faxed to primary care physician/provider. dr flakita valencia faxed formal report of abdl us for mlg. Signatures: Dispatcher [employer] EDCarla Padilla MD MD ml Sleeman, Kacey, RN RN Dalia Gary, Reg Reg gb Cirilo Trevino, Reg Reg lg Farooq Hewitt, RPA-C RPA-Cck7 Ying Luna, RN RN mk4 The chart was reviewed and I authenticate all verbal orders and agree with the evaluation and treatment provided.Attachments: 05/12 16:39 [facility] Payment Agreement lg 05/13 09:26 T-Sheet-- Draft Copy gb MTDD
--- NOTE | 2016-05-15 21:21 | EDDOCDS ---
Physician Documentation [facility] Name: Jayleen Gilbert Age: 50 yrs Sex: Female : 1965 Arrival Date: 05/12/2016 Time: 13:51 Bed TR8 Private MD: Nataly [facility] Disposition: 05/12/16 17:42 Discharged to Home/Self Care. Impression: Inguinal hernia - RIGHT, FAT CONTAINING. - Condition is Stable. - Discharge Instructions: Inguinal Hernia, Adult. - Prescriptions for Tylenol- Codeine #3 300-30 mg Oral Tablet - take 2 tablets by ORAL route every 6 hours As needed MDD: 4 tabs; 20 tablet. - Medication Reconciliation, Local Pharmacy Hours form. - Follow up: Solo Valencia; When: 2 - 3 days; Reason: Recheck today's complaints, Continuance of care. - Problem is new. - Symptoms have improved. - Notes: RETURN TO THE ER IF THE SYMPTOMS WORSEN OR BECOME CONCERNING, FOLLOW UP WITH DR VALENCIA IN NEXT 2-3 DAYS CALL FOR AN APPOINTMENT, USE MEDICATIONS NEEDED FOR PAIN Historical: - Allergies: Ceclor (Rash); - Home Meds: 1. Zyrtec 10 mg Oral tab 1 tab once daily as needed - PMHx: Seasonal Allergies; GERD; ectopic ; Endometriosis; - PSHx: Exploratory lap; - Social history: Smoking status: Patient uses tobacco products, light tobacco smoker. No barriers to communication noted, The patient speaks fluent Albanian. - Family history: Not pertinent. - : The pt / caregiver states he / she is not on anticoagulants. Home medication list is obtained from the patient. - Exposure Risk Screening:: None identified. 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 5 in. (165.10 cm) (M); Pain 8/10; 18:13 BP 125 / 72; Pulse 72; Resp 18; Temp 97.8; Pulse Ox 99% ; Pain 6/10; jam1 13:54 Body Mass Index 19.30 (52.62 kg, 165.10 cm) gr2 MDM: 14:45 -US Pelvic Non-Ob Complete Ordered. EDMS 14:46 DUPLEX SCAN LIMITED (DOPPLER)+US Ordered. EDMS 14:46 Urinalysis Ordered. EDMS 14:46 Urine Culture Ordered. EDMS 14:49 Abdomen, limited US Ordered. EDMS 15:16 Financial registration complete. lg 15:37 Urinalysis Reviewed. ck7 16:39 [facility] [place] Agreement was scanned into [employer] and attached to record. lg 05/13 09:26 T-Sheet-- Draft Copy was scanned into [employer] and attached to record. gb 09:27 Radiology Report was scanned into [employer] and attached to record. gb Addendum: 05/15/2016 21:18 Radiology Callback: Radiology results faxed to primary care physician/provider. dr flakita valencia faxed formal report of abdl us for mlg. Signatures: Dispatcher [employer] EDCarla Padilla MD MD ml Sleeman, Kacey, RN RN Dalia Gary, Reg Reg gb Cirlio Trevino, Reg Reg lg Farooq Hewitt, RPA-C RPA-Cck7 Ying Luna, RN RN mk4 The chart was reviewed and I authenticate all verbal orders and agree with the evaluation and treatment provided.Attachments: 05/12 16:39 [facility] [place] Agreement lg 05/13 09:26 T-Sheet-- Draft Copy gb Chart Complete MTDD
--- NOTE | 2016-05-15 21:21 | EDDOCDS ---
Nurse's Notes [facility] [employer] Name: Jayleen Gilbert Age: 50 yrs Sex: Female : 1965 Arrival Date: 05/12/2016 Time: 13:51 Bed TR8 Private MD: [facility] Diagnosis: Inguinal hernia-RIGHT, FAT CONTAINING Presentation: 05/12 14:03 Presenting complaint: Patient states: she has had severe right sided abdominal pain kcs since Wednesday and now there is a lump there. Adult Sepsis Screening: The patient does not have new or worsening altered mentation. Patient's respiratory rate is less than 22. Systolic blood pressure is greater than 100. Patient has a qSOFA score of 0- Negative Sepsis Screen. Suicide/Homicide risk assessment- the patient denies having any suicidal and/or homicidal ideations and does not present with any other emotional, behavioral or mental health complaints. 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 Transition of care: patient was not received from another setting of care. 14:03 Acuity: YAN Level 3 kcs 14:03 Method Of Arrival: Walkin/Carried/Asstd kcs 18:09 Risk factors: the patient reports no vaginal bleeding. mk4 Triage Assessment: 14:06 General: Appears comfortable, well developed, well nourished, well groomed, Behavior is kcs cooperative, pleasant. Pain: Location: RLQ abdomen Pain currently is 5 out of 10 on a pain scale. Pt Declines HIV testing. Neurological: Level of Consciousness is awake, alert. Respiratory: Airway is patent Respiratory effort is even, unlabored, Respiratory pattern is regular, symmetrical. GI: Denies diarrhea, nausea, vomiting. Derm: Skin is intact, is healthy with good turgor, Skin is dry, Skin is normal. 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 Zyrtec 10 mg Oral tab 1 tab once daily as needed - PMHx: Seasonal Allergies; GERD; ectopic ; Endometriosis; - PSHx: Exploratory lap; - Social history: Smoking status: Patient uses tobacco products, light tobacco smoker. No barriers to communication noted, The patient speaks fluent Serbian. - Family history: Not pertinent. - : The pt / caregiver states he / she is not on anticoagulants. Home medication list is obtained from the patient. - Exposure Risk Screening:: None identified. Screenin:36 Screening information is obtained from the patient. Fall risk: No risks identified. mk4 Assistance ADL's: requires no assistance with activities of daily living. Abuse/DV Screen: The patient / caregiver reports he/she is: not in a situation that causes fear, pain or injury. Nutritional screening: No deficits noted. Advance Directives: Currently, there is no health care proxy. There is no active DNR order. There is no living will. 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 Advance directive information has not previously been placed in an [facility] medical record. Further advance directive information is declined. home support is adequate. Assessment: 16:10 General: Appears in no apparent distress, pt placed in room from transit, first contact [facility] with pt , pt pleasant reading book, denies any needs or complaints awaiting Dr Shaw call return. 17:10 General: Appears in no apparent distress. Respiratory: Airway is patent Respiratory 4 effort is even, unlabored, Respiratory pattern is regular. 18:08 General: Appears in no apparent distress, comfortable, Behavior is cooperative. GI: mk4 Abdomen is flat, non- distended Bowel sounds present X 4 quads. Abd is soft and non tender. Derm: Skin is intact, is healthy with good turgor. Vital Signs: 13:54 BP 116 / 68; Pulse 66; Resp 18 S; Temp 97.4(O); Pulse Ox 100% on R/A; Weight 52.62 kg gr2 (M); Height 5 ft. 5 in. (165.10 cm) (M); Pain 8/10; 18:13 BP 125 / 72; Pulse 72; Resp 18; Temp 97.8; Pulse Ox 99% ; Pain 6/10; jam1 13:54 Body Mass Index 19.30 (52.62 kg, 165.10 cm) gr2 Vitals: 13:54 Log In Time: May 12, 2016 at 13:54. gr2 ED Course: 13:54 Patient visited by Marla Hutchison. gr2 13:54 [facility] is Private Physician. gr2 13:54 Patient moved to Waiting gr2 13:56 Patient visited by Marla Hutchison. gr2 13:56 Patient moved to Pre RCE gr2 14:04 Triage Initiated kcs 14:36 Patient moved to Triage 1 ar3 14:39 Maldonado Lutz PA is PHCP. btw 14:39 Jaqueilne Thomas MD is Attending Physician. btw 14:39 Patient visited by Maldonado Lutz PA. btw 14:51 Patient moved to TR2 btw 15:02 Urine Culture Sent. ar3 15:02 Urinalysis Sent. ar3 15:21 PHCP role handed off by Maldonado Lutz PA ck7 15:21 Farooq Hewitt RPA-C is PHCP. ck7 15:23 Patient visited by Farooq Hewitt RPA-C. ck7 15:25 Patient moved to Ultrasound br3 16:09 Patient visited by Farooq Hewitt RPA-C. ck7 16:09 Patient moved to TR2 br3 16:09 Patient moved to I10 / 23 mb9 16:36 The patient / caregiver is instructed regarding the plan of care and ED course. mk4 16:36 No IV's were initiated during this patient's visit. No procedures done that require [facility] assistance. 16:39 [facility] Payment Agreement was scanned into [employer] and attached to record. lg 16:40 Patient visited by Ying Luna RN. mk4 17:28 Patient visited by Ying Luna RN. mk4 17:42 Solo Shaw is Referral Physician. ck7 18:08 Patient moved to TR8 mk4 19:50 Abdomen, limited US Returned. EDMS 20:40 -US Pelvic Non-Ob Complete Returned. EDMS 20:40 DUPLEX SCAN LIMITED (DOPPLER)+US Returned. EDMS 0104 09:26 T-Sheet-- Draft Copy was scanned into [employer] and attached to record. gb 09:27 Radiology Report was scanned into [employer] and attached to record. gb Order Results: Lab Order: Urinalysis; SPEC'M 05/12/16 14:52 Test: APPEARANCE, URINE; Value: CLEAR; Range: CLEAR; Status: F Test: COLOR, URINE; Value: STRAW; Range: YELLOW; Status: F Test: PH,URINE; Value: 6.0; Range: 5.0-9.0; Units: UNITS; Status: F Test: SPECIFIC GRAVITY URINE AUTO; Value: 1.003; Range: 1.002-1.035; Status: F Test: PROTEIN, URINE AUTO; Value: NEGATIVE; Range: NEGATIVE; Units: mg/dL; Status: F Test: GLUCOSE, URINE (UA) AUTO; Value: NEGATIVE; Range: NEGATIVE; Units: mg/dL; Status: F Test: KETONE, URINE AUTO; Value: NEGATIVE; Range: NEGATIVE; Units: mg/dL; Status: F Test: UROBILINOGEN, URINE AUTO; Value: 0.2; Range: 0.0-2.0; Units: mg/dL; Status: F Test: BILIRUBIN, URINE AUTO; Value: NEGATIVE; Range: NEGATIVE; Status: F Test: NITRITE, URINE AUTO; Value: NEGATIVE; Range: NEGATIVE; Status: F Test: LEUKOCYTE ESTERASE, URINE AUTO; Value: NEGATIVE; Range: NEGATIVE; Status: F Test: BLOOD, URINE BLOOD; Value: NEGATIVE; Range: NEGATIVE; Status: F Test: WBC, URINE AUTO; Value: 0; Range: 0-3; Units: /HPF; Status: F Test: RBC, URINE AUTO; Value: 1; Range: 0-3; Units: /HPF; Status: F Test: BACTERIA, URINE AUTO; Value: 1+; Range: NEGATIVE; Abnormal: Above high normal; Status: F Test: SQUAMOUS EPITHELIAL CELL UR AU; Value: 0; Range: 0-6; Units: /HPF; Status: F Test: HYALINE CAST, URINE AUTO; Value: 0; Range: 0-1; Units: /LPF; Status: F Lab Order: Urine Culture; SPEC'M 05/12/16 14:52 Test: URINE CULTURE; Value: URINE CULTURE RESULT NO GROWTH; Status: F Radiology Order: -US Pelvic Non-Ob Complete Test: -US Pelvic Non-Ob Complete REASON FOR EXAMINATION: ? hernia;Adnexal Pain r/o Torsion; PELVIC ULTRASOUND:; ; Real-time sonographic evaluation of the pelvis performed utilizing transabdominal; technique. The bladder measures 3.7 x 2.3 x 5.0 cm. Uterus measures 7.6 x 3.7 x; 4.5 cm. Endometrial stripe measures 2 mm with no endometrial fluid collection.; Ovaries are normal in size and echotexture, the right ovary measuring 2.4 x 2.0 x; 2.6 cm and left ovary 2.4 x 1.9 x 2.1 cm. There is no adnexal mass or free fluid.; There is no torsion. Blood flow is seen in each ovary with duplex Doppler; evaluation, RI of the right ovary 0.56 and left ovary 0.70. Dominant follicle in; the right ovary 1.9 cm in diameter and dominant follicle left ovary 1.9 cm in; diameter.; ; IMPRESSION:; ; Negative pelvic ultrasound as discussed above. No torsion.; ; ; Signed by; Mario Sauer MD 05/13/2016 05:15 P; Radiology Order: DUPLEX SCAN LIMITED (DOPPLER)+US Test: DUPLEX SCAN LIMITED (DOPPLER)+US REASON FOR EXAMINATION: ? R inguinal hernia;Adnexal Pain r/o Torsion; PELVIC ULTRASOUND:; ; Real-time sonographic evaluation of the pelvis performed utilizing transabdominal; technique. The bladder measures 3.7 x 2.3 x 5.0 cm. Uterus measures 7.6 x 3.7 x; 4.5 cm. Endometrial stripe measures 2 mm with no endometrial fluid collection.; Ovaries are normal in size and echotexture, the right ovary measuring 2.4 x 2.0 x; 2.6 cm and left ovary 2.4 x 1.9 x 2.1 cm. There is no adnexal mass or free fluid.; There is no torsion. Blood flow is seen in each ovary with duplex Doppler; evaluation, RI of the right ovary 0.56 and left ovary 0.70. Dominant follicle in; the right ovary 1.9 cm in diameter and dominant follicle left ovary 1.9 cm in; diameter.; ; IMPRESSION:; ; Negative pelvic ultrasound as discussed above. No torsion.; ; ; Signed by; Mario Sauer MD 05/13/2016 05:15 P; Radiology Order: Abdomen, limited US Test: Abdomen, limited US REASON FOR EXAMINATION: ? HERNIA; RIGHT INGUINAL ULTRASOUND:; ; Right inguinal ultrasound is performed at the site of a palpable abnormality.; Small rounded area of tissue and fluid is seen at that location measuring about 3; cm in diameter. This appears to communicate with the peritoneal cavity via a thin; channel. No other adjacent abnormality is seen. There is no evidence of bowel; within the structure. It is not reducible.; ; IMPRESSION:; ; Findings assessed above which appear to represent a small nonreducible right; inguinal hernia containing fat and fluid but no bowel. This may represent a small; incarcerated hernia at this location.; ; ; Signed by; Mario Sauer MD 05/13/2016 05:15 P; Outcome: 05/12 17:10 Discharge Assessment: Patient awake, alert and oriented x 3. No cognitive and/or mk4 functional deficits noted. Patient verbalized understanding of disposition instructions. Patient awake and alert. Discharge Assessment: patient administered narcotics - no. The following High Risk Discharge criteria are identified: None. Condition: good Condition: stable. No special radiology studies were completed. Property sent home with patient. 17:42 Discharge ordered by Provider. ck7 18:18 Patient left the ED. mk4 Signatures: Dispatcher [employer] EDMS Erika James, RN RN kcs Iliana Ramirez, HONING MACHINE OPERATOR PRODUCTION HONING MACHINE OPERATOR PRODUCTION jam1 Dalia Bennett, Reg Reg gb Ganemiliano, LoriLee, Reg Reg lg Jayla Hutchison br3 Luz Elena Mendosa, HONING MACHINE OPERATOR PRODUCTION HONING MACHINE OPERATOR PRODUCTION ar3 Maldonado Lutz PA PA btw Farooq Hewitt, RPA-C RPA-Cck7 Marla Hutchison gr2 Ying Luna RN RN mk4 Monroe Olivas RN RN mb9 Corrections: (The following items were deleted from the chart) 16:37 16:10 General: Appears in no apparent distress, pt placed in room from transit, first mk4 contact with pt . mk4 Chart Complete MTDD
--- NOTE | 2016-05-15 21:21 | EDDOCDS ---
Physician Documentation [facility] Name: Jayleen Gilbert Age: 50 yrs Sex: Female : 1965 Arrival Date: 05/12/2016 Time: 13:51 Bed TR8 Private MD: [facility] Disposition: 05/12/16 17:42 Discharged to Home/Self Care. Impression: Inguinal hernia - RIGHT, FAT CONTAINING. - Condition is Stable. - Discharge Instructions: Inguinal Hernia, Adult. - Prescriptions for Tylenol- Codeine #3 300-30 mg Oral Tablet - take 2 tablets by ORAL route every 6 hours As needed MDD: 4 tabs; 20 tablet. - Medication Reconciliation, Local Pharmacy Hours form. - Follow up: Solo Valencia; When: 2 - 3 days; Reason: Recheck today's complaints, Continuance of care. - Problem is new. - Symptoms have improved. - Notes: RETURN TO THE ER IF THE SYMPTOMS WORSEN OR BECOME CONCERNING, FOLLOW UP WITH DR VALENCIA IN NEXT 2-3 DAYS CALL FOR AN APPOINTMENT, USE MEDICATIONS NEEDED FOR PAIN Historical: - Allergies: Ceclor (Rash); - Home Meds: 1. Zyrtec 10 mg Oral tab 1 tab once daily as needed - PMHx: Seasonal Allergies; GERD; ectopic ; Endometriosis; - PSHx: Exploratory lap; - Social history: Smoking status: Patient uses tobacco products, light tobacco smoker. No barriers to communication noted, The patient speaks fluent Bulgarian. - Family history: Not pertinent. - : The pt / caregiver states he / she is not on anticoagulants. Home medication list is obtained from the patient. - Exposure Risk Screening:: None identified. 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 5 in. (165.10 cm) (M); Pain 8/10; 18:13 BP 125 / 72; Pulse 72; Resp 18; Temp 97.8; Pulse Ox 99% ; Pain 6/10; jam1 13:54 Body Mass Index 19.30 (52.62 kg, 165.10 cm) gr2 MDM: 14:45 -US Pelvic Non-Ob Complete Ordered. EDMS 14:46 DUPLEX SCAN LIMITED (DOPPLER)+US Ordered. EDMS 14:46 Urinalysis Ordered. EDMS 14:46 Urine Culture Ordered. EDMS 14:49 Abdomen, limited US Ordered. EDMS 15:16 Financial registration complete. lg 15:37 Urinalysis Reviewed. ck7 16:39 [facility] Payment Agreement was scanned into [employer] and attached to record. lg 05/13 09:26 T-Sheet-- Draft Copy was scanned into [email or web address] and attached to record. gb 09:27 Radiology Report was scanned into [email or web address] and attached to record. gb Addendum: 05/15/2016 21:18 Radiology Callback: Radiology results faxed to primary care physician/provider. dr flakita valencia faxed formal report of abdl us for mlg. Signatures: Dispatcher [employer] EDCarla Padilla MD MD ml Sleeman, Kacey, RN RN Dalia Gary, Reg Reg gb Cirilo Trevino, Reg Reg lg Farooq Hewitt, RPA-C RPA-Cck7 Ying Luna, RN RN mk4 The chart was reviewed and I authenticate all verbal orders and agree with the evaluation and treatment provided.Attachments: 05/12 16:39 [facility] Payment Agreement lg 05/13 09:26 T-Sheet-- Draft Copy gb Chart Complete MTDD
== END 2016-05-12 18:18 | disposition home or self-care (01) ==
LOC: M ED 13:51
DX: K40.90 Unilateral inguinal hernia, without obstruction or gangrene, not specified as recurrent (principal); J30.9 Allergic rhinitis, unspecified; K21.9 Gastro-esophageal reflux disease without esophagitis; N80.9 Endometriosis, unspecified; Z79.899 Other long term (current) drug therapy; Z88.1 Allergy status to other antibiotic agents; F17.210 Nicotine dependence, cigarettes, uncomplicated

== ENCOUNTER → 2016-06-01 | Day surgery (SDC) | payer BC ==
[~2016-06-01] VITALS: Ht 165.1 cm; Wt 54.0 kg
[~2016-06-01] MED LIST changes: +BUPIVACAINE/EPIN 0.25% 30 ML VIAL As Ordered ONE; +CLINDAMYCIN 600 MG in APPROPRIATE DILUENT 1 EA IV ONE; +GLYCOPYRROLATE INJ 0.2 MG/ML 2 ML VIAL As Ordered ONE; +KETOROLAC 60 MG/2 ML VIAL (J1885) As Ordered ONE; +LIDOCAINE 2% INJ 100 MG/5 ML SDV (FOR ANES.) As Ordered ONE; +LR 1,000 ML IV SCH; +METOCLOPRAMIDE INJ 10MG/2ML VIAL (J2765) IV PRN; +MIDAZOLAM INJ 2 MG/2 ML VIAL (J2250) As Ordered ONE; +MORPHINE 2 MG/ML 1ML SYRINGE IV PRN; +NEOSTIGMINE 1MG/ML 5 ML SYRINGE (J2710) As Ordered ONE; +NORCO, ANEXSIA 5/325MG TABLET (HYDROcodone/ACETAMINOPHEN) PO PRN; +ONDANSETRON 4MG/2ML VIAL (J2405) As Ordered ONE; +ONDANSETRON 4MG/2ML VIAL (J2405) IV PRN; +PERCOCET 5MG/325MG TAB PO PRN; +PROPOFOL 200 MG/20 ML VIAL As Ordered ONE; +ROCURONIUM BROMIDE 50 MG/5 ML VIAL As Ordered ONE; +ZYRT10CA PO; +dexameTHASONE 4 MG/ML 1ML VIAL (J1100) As Ordered ONE; +fentaNYL 100 MCG/2 ML INJECTION (J3010) As Ordered ONE
[2016-06-01] MEDS: fentaNYL 100 MCG/2 ML INJECTION (J3010) IV PRN ×3 (10:45→11:00)
--- NOTE | 2016-06-01 10:52 | RO ---
DATE OF PROCEDURE: 06/01/2016 PREOPERATIVE DIAGNOSIS: Incarcerated right inguinal hernia. POSTOPERATIVE DIAGNOSIS: Incarcerated right femoral hernia. PROCEDURE: Open repair of incarcerated right femoral hernia with mesh SURGEON: Dr. Whyte SPLICER OPERATOR: Dr. Clinton ANESTHESIA: General. ESTIMATED BLOOD LOSS (EBL): 5. COMPLICATION: None. INDICATION FOR PROCEDURE: Patient is a 50-year-old female who awoke about a month ago with a hard lump in the right groin that is extremely painful. She went to the emergency room (ER), had an ultrasound completed, which showed right inguinal hernia. When I saw her in the office, she had a hard lump that was very tender in the right groin. Recommendation was to proceed with open repair, Due to her history of (C) section, she was not a candidate for a laparoscopic repair. Risks and benefits of procedure not limited but including bleeding, infection, hernia formation, hernia recurrence, damage to surrounding structures, need for further surgery were discussed in detail with the patient. Informed consent was obtained and procedure was planned. DESCRIPTION OF PROCEDURE: Patient brought back to operating room #8. After sufficient sedation, the right groin was sterilely prepped and draped and a Lei catheter was placed. Next, a time-out was done to confirm proper patient and proper procedure. Following that a 4 cm incision was created in the right groin overlying this palpable lump. Incision was carried down right on top of the lump using electrocautery. Once this was completed, the lump was very hard. It was able to be circumscribed at the base of it. There was about a 1 cm neck going underneath the inguinal ligament heading inside of the peritoneal cavity. The neck was encircled and suture ligated with a #1 Prolene suture. Once that was completed, the hernia sac was amputated. The neck of the hernia was reduced back inside of the abdomen. A Bard PerFix plug was then taken, placed inside of the 1 cm defect, sutured in place with #0 Vicryl interrupted sutures to hold it in place. The subcutaneous tissues were then reapproximated over top it with #3-0 Vicryl suture, followed by running layer of #3-0 chromic and the subcutaneous tissues, and a running #4-0 Vicryl subcuticular suture approximated the skin edges. Steri-Strips, 4 x 4 and tape were then applied, thus ending procedure. MTDD
[2016-06-01 12:16] VITALS: BP 117/59
== END ==
LOC: M SDC 07:30
PROVIDERS: ATTEND Surgery
DX: K41.30 Unilateral femoral hernia, with obstruction, without gangrene, not specified as recurrent (principal); K21.9 Gastro-esophageal reflux disease without esophagitis; E16.2 Hypoglycemia, unspecified; J30.9 Allergic rhinitis, unspecified; F17.210 Nicotine dependence, cigarettes, uncomplicated; Z88.1 Allergy status to other antibiotic agents; Z79.899 Other long term (current) drug therapy
CPT/HCPCS: 49553; 88302; C1781; J1100; J1885; J2250; J2405; J2710; J3010

== ENCOUNTER → 2016-10-23 | Outpatient (CLI) | payer BC ==
[~2016-10-23] MED LIST changes: -BUPIVACAINE/EPIN 0.25% 30 ML VIAL As Ordered ONE; -CLINDAMYCIN 600 MG in APPROPRIATE DILUENT 1 EA IV ONE; -GLYCOPYRROLATE INJ 0.2 MG/ML 2 ML VIAL As Ordered ONE; -KETOROLAC 60 MG/2 ML VIAL (J1885) As Ordered ONE; -LIDOCAINE 2% INJ 100 MG/5 ML SDV (FOR ANES.) As Ordered ONE; -LR 1,000 ML IV SCH; -METOCLOPRAMIDE INJ 10MG/2ML VIAL (J2765) IV PRN; -MIDAZOLAM INJ 2 MG/2 ML VIAL (J2250) As Ordered ONE; -MORPHINE 2 MG/ML 1ML SYRINGE IV PRN; -NEOSTIGMINE 1MG/ML 5 ML SYRINGE (J2710) As Ordered ONE; -NORCO, ANEXSIA 5/325MG TABLET (HYDROcodone/ACETAMINOPHEN) PO PRN; -ONDANSETRON 4MG/2ML VIAL (J2405) As Ordered ONE; -ONDANSETRON 4MG/2ML VIAL (J2405) IV PRN; -PERCOCET 5MG/325MG TAB PO PRN; -PROPOFOL 200 MG/20 ML VIAL As Ordered ONE; -ROCURONIUM BROMIDE 50 MG/5 ML VIAL As Ordered ONE; -dexameTHASONE 4 MG/ML 1ML VIAL (J1100) As Ordered ONE; -fentaNYL 100 MCG/2 ML INJECTION (J3010) As Ordered ONE
== END ==
LOC: M RAD 15:29
PROVIDERS: ATTEND Family Medicine
DX: Z53.8 Procedure and treatment not carried out for other reasons (principal)

== ENCOUNTER → 2016-10-30 | Outpatient (CLI) | payer BC | LOC: M RAD 16:07 | PROVIDERS: ATTEND Family Medicine | DX: Z53.8 Procedure and treatment not carried out for other reasons (principal); N63 Unspecified lump in breast ==

== ENCOUNTER → 2016-11-13 | Outpatient (CLI) | payer BC ==
[~2016-11-13] MED LIST changes: -ACET-654 PO; +ACET1TAB17 PO; -IBUP200C PO; +IBUP200C10 PO
--- NOTE | 2016-11-13 16:24 | REP ---
Digital diagnostic bilateral mammography with CAD: History: Left breast lump. The patient states of the lump has been present since May of this year indicating larger. Comparison mammography 01/04/2015, 04/12/2012, 07/24/2009. Findings: A skin marker is affixed to the skin at the site of the lump and routine views of the left breast are augmented by magnified focal spot compression MLO and laterally exaggerated CC views as well as the non magnified true MLO view. The upper outer quadrant left breast skin marker is seen over a homogeneous completely fat density oval-shaped lesion 3.6 x 2.2 x 3.8 cm in diameter. This is compatible with a benign lipoma. This is visible in retrospect on the MLO views prior studies and is gradually getting larger. No soft tissue density is seen. No architectural distortion or suspicious microcalcification is observed on either side. No worrisome skin change is seen. Impression: BIRADS category II benign bilateral mammography. A benign appearing 3.8 cm lipoma is seen corresponding to the palpable lump near the left axilla in the upper outer quadrant. This should not dissuade one from biopsy of a palpable lump depending on its clinical characteristics. Clinical follow-up is advised. Annual screening mammography can be continued. This mammogram was interpreted with the aid of an FDA-approved computer-aided detection system. The patient states she/he had a clinical breast exam in October 2016. The patient letter being requested is M2. Signed by Shad Salazar MD 11/13/2016 04:41 P
== END ==
LOC: M RAD 15:27
PROVIDERS: ATTEND Nurse Practitioner Women's Health
DX: D17.9 Benign lipomatous neoplasm, unspecified (principal)

== ENCOUNTER → 2016-12-04 | Outpatient (REF) | payer BC | LOC: M SFHCWAGY 15:16 | PROVIDERS: ATTEND Family Medicine | DX: Z12.4 Encounter for screening for malignant neoplasm of cervix (principal) ==

== ENCOUNTER 2017-09-11 13:15 | Emergency (ER) | payer BC ==
[2017-09-11] MEDS ORDERED: LIDOCAINE 1% MDV 20ML VIAL SC (14:00)
[2017-09-11] MEDS: LIDOCAINE 1% MDV 20ML VIAL SC (14:00)
[2017-09-11] MEDS: CLINDAMYCIN 150 MG CAP PO (14:49)
[2017-09-11] MEDS: ADACEL/BOOSTRIX VACCINE (DIPHTH/PERTUSS/ACELL/TETANUS)0.5ML SYR (90715) IM (14:50)
== END 2017-09-11 15:15 | disposition home or self-care (01) ==
LOC: M ED 13:15
DX: S61.412A Laceration without foreign body of left hand, initial encounter (principal); W27.8XXA Contact with other nonpowered hand tool, initial encounter; Y92.098 Other place in other non-institutional residence as the place of occurrence of the external cause; F17.200 Nicotine dependence, unspecified, uncomplicated; Z88.1 Allergy status to other antibiotic agents
CPT/HCPCS: 90715

== ENCOUNTER → 2018-02-25 | Outpatient (CLI) | payer BC | LOC: M WHC 15:05 | DX: Z12.31 Encounter for screening mammogram for malignant neoplasm of breast (principal) | CPT/HCPCS: 77067 ==

== ENCOUNTER → 2018-02-25 | Outpatient (REF) | payer BC | LOC: M SFHCWAGY 15:11 | DX: Z12.4 Encounter for screening for malignant neoplasm of cervix (principal); Z12.31 Encounter for screening mammogram for malignant neoplasm of breast | CPT/HCPCS: G0123 ==

== ENCOUNTER → 2018-06-18 | Outpatient (CLI) | payer BC ==
[~2018-06-18] MED LIST changes: -ACET1TAB17 PO; +ACET1TAB55 PO; +CLIN150C14 PO; -IBUP200C10 PO; +IBUP200C25 PO
== END ==
LOC: M ADAMS 15:40
PROVIDERS: ATTEND Physician Assistant Medical
DX: R35.0 Frequency of micturition (principal); F17.219 Nicotine dependence, cigarettes, with unspecified nicotine-induced disorders; R14.0 Abdominal distension (gaseous); R10.30 Lower abdominal pain, unspecified; K21.9 Gastro-esophageal reflux disease without esophagitis

== ENCOUNTER → 2018-06-18 | Outpatient (REF) | payer BC ==
[2018-06-18 19:39] LABS: BASO # 0.1 10^3/uL (0.0-0.2); EOS # 0.6 10^3/uL (0.0-0.50); EOS % 6.3 % (0.0-3.0); HEMATOCRIT 42.1 % (36.0-47.0); HEMOGLOBIN 13.3 g/dl (12.0-15.5); LYMPH # 3.6 10^3/uL (1.5-4.5); LYMPH % 37.8 % (24.0-44.0); MEAN CORPUSCULAR HEMOGLOBIN 31.1 pg (27.0-33.0); MEAN CORPUSCULAR HGB CONC 31.6 g/dl (32.0-36.5); MEAN CORPUSCULAR VOLUME 98.6 fl (80.0-96.0); MONO # 0.5 10^3/uL (0.0-0.8); MONO % 5.4 % (0.0-5.0); NEUTROPHILS # 4.7 10^3/uL (1.8-7.7); NEUTROPHILS % 49.2 % (36.0-66.0); PLATELET COUNT, AUTOMATED 394 10^3/uL (150-450); RED BLOOD COUNT 4.27 10^6/uL (4.00-5.40); WHITE BLOOD COUNT 9.5 10^3/uL (4.0-10.0)
[2018-06-18 19:43] LABS: APPEARANCE, URINE TURBID (CLEAR); BACTERIA, URINE AUTO 3+ (NEGATIVE); BILIRUBIN, URINE AUTO NEGATIVE (NEGATIVE); BLOOD, URINE BLOOD 1+ (NEGATIVE); CALCIUM OXALATE CRYSTALS MODERATE; COLOR, URINE AMBER (YELLOW); GLUCOSE, URINE (UA) AUTO NEGATIVE (NEGATIVE); KETONE, URINE AUTO NEGATIVE (NEGATIVE); LEUKOCYTE ESTERASE, URINE AUTO NEGATIVE (NEGATIVE); MUCUS, URINE SMALL (NEGATIVE); NITRITE, URINE AUTO NEGATIVE (NEGATIVE); PROTEIN, URINE AUTO NEGATIVE (NEGATIVE); RBC, URINE AUTO 0 /HPF (0-3); SPECIFIC GRAVITY URINE AUTO 1.019 (1.002-1.035); SQUAMOUS EPITHELIAL CELL UR AU 0 /HPF (0-6); UROBILINOGEN, URINE AUTO 0.2 mg/dL (0.0-2.0); WBC, URINE AUTO 1 /HPF (0-3)
[2018-06-18 19:52] LABS: ALBUMIN 3.8 GM/DL (3.2-5.2); ALT/SGPT 21 U/L (12-78); BILIRUBIN,TOTAL 0.4 MG/DL (0.2-1.0); BLOOD UREA NITROGEN 14 MG/DL (7-18); CALCIUM LEVEL 8.6 MG/DL (8.5-10.1); CARBON DIOXIDE LEVEL 30 MEQ/L (21-32); CHLORIDE LEVEL 106 MEQ/L (98-107); CHOLESTEROL LEVEL 212 MG/DL (<200); CHOLESTEROL RISK RATIO 2.944 (<5); CREATININE FOR GFR 0.87 MG/DL (0.55-1.30); GLOMERULAR FILTRATION RATE > 60.0 (>51); GLUCOSE, FASTING 77 MG/DL (70-100); HDL CHOLESTEROL 72 MG/DL (>40); LDL CHOLESTEROL 125 MG/DL (<100); NON-HDL-C 140 MG/DL; SODIUM LEVEL 141 MEQ/L (136-145); TOTAL PROTEIN 6.8 GM/DL (6.4-8.2); TRIGLYCERIDES LEVEL 74 MG/DL (<150)
[2018-06-20 10:04] LABS: TOTAL 25(OH) VITAMIN D 21.9 NG/ML (30.0-100.0)
== END ==
LOC: M SFHCADAM 08:38
PROVIDERS: ATTEND Physician Assistant Medical
DX: R35.0 Frequency of micturition (principal); F17.219 Nicotine dependence, cigarettes, with unspecified nicotine-induced disorders; R14.0 Abdominal distension (gaseous); R10.30 Lower abdominal pain, unspecified; K21.9 Gastro-esophageal reflux disease without esophagitis; E55.9 Vitamin D deficiency, unspecified

== ENCOUNTER → 2018-09-20 | Outpatient (CLI) | payer BC ==
--- NOTE | 2018-09-20 07:27 | REP ---
Clinical: Right upper quadrant pain. Technique: Real time eduardo scale and color evaluation using curved array transducer. Findings: Liver and pancreas are normal in contour, size, and echogenicity without focal hepatic or pancreatic lesions identified. The gallbladder is normal and without gallstones, wall thickening, or pericholecystic fluid. No biliary ductal dilatation is appreciated and the common bile duct measures 3.9 mm diameter. The right kidney is normal in reniform shape without hydronephrosis and measures 9.7 x 4.6 x 5.1 cm. Abdominal aorta normal. No ascites in the right upper quadrant. Impression: Normal right upper quadrant ultrasound. Electronically Signed by Jimenez Alvarado MD 09/20/2018 07:18 A
== END ==
LOC: M RAD 06:36
PROVIDERS: ATTEND Physician Assistant Medical
DX: R10.11 Right upper quadrant pain (principal)

== ENCOUNTER → 2019-03-03 | Outpatient (CLI) | payer BC ==
[~2019-03-03] MED LIST changes: -OMEP40CA2 PO; +OMEP40CA97 PO
--- NOTE | 2019-03-03 15:08 | REPMRS ---
Patient History The patient states she has not had a clinical breast exam in over a year. Patient is postmenopausal. No known family history of cancer. No Hormone Replacement Therapy 3D TOMOSYNTHESIS WAS PERFORMED. [facility] 7.[facility]%. Digital Woman Screen Mammo: March 03, 2019 - Exam #: [id number] Bilateral CC and MLO view(s) were taken. Technologist: Nemo Yu, Technologist Prior study comparison: February 25, 2018, bilateral digital woman screen mammo performed at [facility]. November 13, 2016, left breast digital mammo diagnostic bilateral, performed at [facility]. FINDINGS: The breast tissue is heterogeneously dense. This may lower the sensitivity of mammography. There has been no change in the appearance of the mammogram from the prior studies. There is a moderate amount of residual fibroglandular tissue which is fairly symmetric. There is no interval development of dominant mass, areas of architectural distortion, or clustered microcalcification typical of malignancy. Assessment: BI-RADS/ACR category 1 mammogram. Negative Mammogram. Recommendation Routine screening mammogram in 1 year (for women over age 40). This mammogram was interpreted with the aid of an FDA-approved computer-aided dectection system. Electronically Signed By: Mario Sauer MD 03/03/19 [id number]
== END ==
LOC: M WHC 13:36
PROVIDERS: ATTEND Family Medicine
DX: Z12.31 Encounter for screening mammogram for malignant neoplasm of breast (principal)

== ENCOUNTER → 2020-02-02 | Outpatient (REF) | payer BC ==
[2020-02-02 13:15] LABS: HEMATOCRIT 45.2 % (36.0-47.0); HEMOGLOBIN 14.6 g/dl (12.0-15.5); MEAN CORPUSCULAR HEMOGLOBIN 31.1 pg (27.0-33.0); MEAN CORPUSCULAR HGB CONC 32.3 g/dl (32.0-36.5); MEAN CORPUSCULAR VOLUME 96.2 fl (80.0-96.0); PLATELET COUNT, AUTOMATED 371 10^3/uL (150-450); WHITE BLOOD COUNT 7.4 10^3/uL (4.0-10.0)
[2020-02-02 13:30] LABS: ALBUMIN 3.8 GM/DL (3.2-5.2); ALT/SGPT 20 U/L (12-78); BILIRUBIN,TOTAL 0.5 MG/DL (0.2-1.0); BLOOD UREA NITROGEN 10 MG/DL (7-18); CALCIUM LEVEL 9.6 MG/DL (8.5-10.1); CARBON DIOXIDE LEVEL 32 MEQ/L (21-32); CHLORIDE LEVEL 107 MEQ/L (98-107); CHOLESTEROL LEVEL 236 MG/DL (<200); CHOLESTEROL RISK RATIO 3.371 (<5); CREATININE FOR GFR 0.83 MG/DL (0.55-1.30); GLOMERULAR FILTRATION RATE > 60.0 (>51); GLUCOSE, FASTING 85 MG/DL (70-100); HDL CHOLESTEROL 70 MG/DL (>40); LDL CHOLESTEROL 145 MG/DL (<100); NON-HDL-C 166 MG/DL; POTASSIUM SERUM 5.1 MEQ/L (3.5-5.1); SODIUM LEVEL 140 MEQ/L (136-145); TOTAL PROTEIN 7.2 GM/DL (6.4-8.2); TRIGLYCERIDES LEVEL 107 MG/DL (<150)
== END ==
LOC: M SFHCADAM 12:29
PROVIDERS: ATTEND Physician Assistant Medical
DX: K21.9 Gastro-esophageal reflux disease without esophagitis (principal); F17.210 Nicotine dependence, cigarettes, uncomplicated

== ENCOUNTER → 2020-06-25 | Outpatient (CLI) | payer BC ==
[~2020-06-25] MED LIST changes: -CLIN150C14 PO; +CLIN150C15 PO
--- NOTE | 2020-06-25 12:57 | REPMRS ---
Patient History The patient states she has not had a clinical breast exam in over a year. No known family history of cancer. No Hormone Replacement Therapy Digital Woman Screen Mammo: June 25, 2020 - Exam #: [id number] Bilateral CC and MLO view(s) were taken. Technologist: Nemo Yu, Technologist Prior study comparison: March 03, 2019, bilateral digital woman screen mammo performed at [facility]. February 25, 2018, bilateral digital woman screen mammo performed at [facility]. November 13, 2016, left breast digital mammo diagnostic bilateral, performed at [facility]. FINDINGS: The breast tissue is heterogeneously dense. This may lower the sensitivity of mammography. The Volpara volumetric breast density category is: C. There is a moderate amount of heterogeneously dense fibroglandular tissue which is fairly symmetric. There is no interval development of dominant mass, architectural distortion, or grouped microcalcification typical of malignancy. There has been no change in the appearance of the mammogram from the prior studies. 3-D tomosynthesis shows no additional findings. Assessment: BI-RADS/ACR category 1 mammogram. Negative Mammogram. Recommendation Routine screening mammogram of both breasts in 1 year (for women over age 40). This patient's [facility] Lifetime Breast Cancer RIsk is estimated at 7.0 %. This mammogram was interpreted with the aid of an FDA-approved computer-aided dectection system. Electronically Signed By: Dhaval Salazar MD 06/25/20 [id number]
== END ==
LOC: M WHC 11:34
PROVIDERS: ATTEND Obstetrics & Gynecology
DX: Z12.31 Encounter for screening mammogram for malignant neoplasm of breast (principal)

== ENCOUNTER → 2021-07-08 | Outpatient (REF) | payer BC ==
[~2021-07-08] MED LIST changes: -CLIN150C15 PO; +CLIN150C17 PO; +OMEP40CA4 PO; -OMEP40CA97 PO
== END ==
LOC: M SFHCWAGY 15:43
PROVIDERS: ATTEND Obstetrics & Gynecology
DX: Z12.4 Encounter for screening for malignant neoplasm of cervix (principal)

== ENCOUNTER → 2021-07-08 | Outpatient (CLI) | payer BC | LOC: M WHC 10:39 | PROVIDERS: ATTEND Obstetrics & Gynecology | DX: Z12.31 Encounter for screening mammogram for malignant neoplasm of breast (principal) ==

== ENCOUNTER → 2022-07-08 | Outpatient (REF) | payer OTHER ==
[2022-07-08 14:16] LABS: ALKALINE PHOSPHATASE 132 U/L (46-116); ALT/SGPT 24 U/L (7.0-40); AST/SGOT 18 U/L (<34); BILIRUBIN,TOTAL 0.4 MG/DL (0.3-1.2); BLOOD UREA NITROGEN 12 MG/DL (9-23); CALCIUM LEVEL 9.7 MG/DL (8.5-10.1); CARBON DIOXIDE LEVEL 32 MMOL/L (20-31); CHLORIDE LEVEL 108 MMOL/L (98-107); CHOLESTEROL LEVEL 243 MG/DL (<200); CHOLESTEROL RISK RATIO 3.18 (<5); GLOMERULAR FILTRATION RATE > 60.0 (>51); GLUCOSE, FASTING 89 MG/DL (60-100); HDL CHOLESTEROL 76.2 MG/DL (>40); LDL CHOLESTEROL 132.8 MG/DL (<100); NON-HDL-C 167 MG/DL; POTASSIUM SERUM 4.8 MMOL/L (3.5-5.1); SODIUM LEVEL 144 MMOL/L (136-145); TOTAL 25(OH) VITAMIN D 23.4 NG/ML (20.0-100.0); TOTAL PROTEIN 6.6 G/DL (5.7-8.2); TRIGLYCERIDES LEVEL 170 MG/DL (<150)
[2022-07-08 14:26] LABS: BASO # 0.1 10^3/uL (0.0-0.2); BASO % 1.2 % (0.0-1.0); EOS # 0.1 10^3/uL (0.0-0.5); EOS % 1.6 % (0.0-3.0); HEMATOCRIT 42.4 % (36.0-47.0); HEMOGLOBIN 13.7 g/dl (12.0-15.5); LYMPH # 2.6 10^3/uL (1.5-5.0); LYMPH % 33.5 % (24.0-44.0); MEAN CORPUSCULAR HEMOGLOBIN 31.4 pg (27.0-33.0); MEAN CORPUSCULAR HGB CONC 32.3 g/dl (32.0-36.5); MONO # 0.5 10^3/uL (0.0-0.8); MONO % 6.3 % (2.0-8.0); NEUTROPHILS # 4.4 10^3/uL (1.5-8.5); NEUTROPHILS % 56.9 % (36.0-66.0); PLATELET COUNT, AUTOMATED 378 10^3/uL (150-450); RED BLOOD COUNT 4.37 10^6/uL (4.00-5.40); WHITE BLOOD COUNT 7.7 10^3/uL (4.0-10.0)
== END ==
LOC: M SFHCADAM 08:25
PROVIDERS: ATTEND Physician Assistant Medical
DX: K21.9 Gastro-esophageal reflux disease without esophagitis (principal); F17.219 Nicotine dependence, cigarettes, with unspecified nicotine-induced disorders; E55.9 Vitamin D deficiency, unspecified

== ENCOUNTER → 2022-08-05 | Outpatient (CLI) | payer OTHER | LOC: M WHC 08:00 | PROVIDERS: ATTEND Obstetrics & Gynecology | DX: Z12.31 Encounter for screening mammogram for malignant neoplasm of breast (principal) ==

== ENCOUNTER 2022-11-09 11:54 | Emergency (ER) | payer OTHER ==
[~2022-11-09] VITALS: Ht 165.1 cm; Wt 63.5 kg
[2022-11-09 12:55] LABS: BASO # 0.1 10^3/uL (0.0-0.2); BASO % 1.3 % (0.0-1.0); EOS % 0.6 % (0.0-3.0); HEMATOCRIT 41.5 % (36.0-47.0); HEMOGLOBIN 13.4 g/dl (12.0-15.5); LYMPH # 2.6 10^3/uL (1.5-5.0); LYMPH % 38.3 % (24.0-44.0); MEAN CORPUSCULAR HEMOGLOBIN 30.8 pg (27.0-33.0); MEAN CORPUSCULAR HGB CONC 32.3 g/dl (32.0-36.5); MEAN CORPUSCULAR VOLUME 95.4 fl (80.0-96.0); MONO # 0.4 10^3/uL (0.0-0.8); MONO % 5.3 % (2.0-8.0); NEUTROPHILS # 3.7 10^3/uL (1.5-8.5); NEUTROPHILS % 54.2 % (36.0-66.0); PLATELET COUNT, AUTOMATED 362 10^3/uL (150-450); RED BLOOD COUNT 4.35 10^6/uL (4.00-5.40); WHITE BLOOD COUNT 6.8 10^3/uL (4.0-10.0)
[2022-11-09 13:15] LABS: ALBUMIN 4.1 G/DL (3.2-5.2); BILIRUBIN,DIRECT 0.1 MG/DL (<0.4); BILIRUBIN,TOTAL 0.5 MG/DL (0.3-1.2); TOTAL PROTEIN 6.5 G/DL (5.7-8.2)
[2022-11-09] MEDS ORDERED: ISOVUE-370 76% 100ML VIAL As Ordered ONE (15:35)
[2022-11-09 17:22] VITALS: BP 130/69; TEMP 98.2; O2SAT 100
== END 2022-11-09 17:30 | disposition home or self-care (01) ==
LOC: M ED 11:54
DX: K59.00 Constipation, unspecified (principal); K64.8 Other hemorrhoids; K21.9 Gastro-esophageal reflux disease without esophagitis; Z79.899 Other long term (current) drug therapy; Z88.1 Allergy status to other antibiotic agents; Z87.891 Personal history of nicotine dependence
CPT/HCPCS: 36415; 74177; 80047; 80076; 81001; 83690; 85025; 99284; Q9967

== ENCOUNTER 2022-12-31 12:23 | Day surgery (SDC) | payer OTHER ==
[~2022-12-31] VITALS: Ht 162.6 cm; Wt 60.6 kg
[~2022-12-31 12:23] MED LIST changes: +NS 1,000 ML IV ONE; +XYZASOL2 PO
[2022-12-31] MEDS ORDERED: propofoL 200 MG/20 ML VIAL As Ordered ONE (13:49)
[2022-12-31] MEDS ORDERED: GLYCOPYRROLATE INJ 0.2 MG/ML 2 ML VIAL As Ordered ONE (13:49)
[2022-12-31] MEDS ORDERED: LIDOCAINE 2% 100MG/5ML SDV (FOR ANES.) As Ordered ONE (13:49)
[2022-12-31 14:29] VITALS: TEMP 97.6
[2022-12-31 14:42] VITALS: BP 113/70; O2SAT 99
== END 2022-12-31 14:57 | disposition home or self-care (01) ==
LOC: M OPP 12:23
PROVIDERS: ATTEND Surgery
DX: K64.8 Other hemorrhoids (principal); K62.5 Hemorrhage of anus and rectum; K21.00 Gastro-esophageal reflux disease with esophagitis, without bleeding; Z87.891 Personal history of nicotine dependence; Z88.1 Allergy status to other antibiotic agents

== ENCOUNTER → 2023-06-28 | Outpatient (REF) | payer BC ==
[~2023-06-28] MED LIST changes: -NS 1,000 ML IV ONE
[2023-06-28 13:07] LABS: BASO # 0.1 10^3/uL (0.0-0.2); BASO % 1.2 % (0.0-1.0); EOS # 0.2 10^3/uL (0.0-0.5); EOS % 2.5 % (0.0-3.0); HEMATOCRIT 41.7 % (36.0-47.0); HEMOGLOBIN 13.2 g/dl (12.0-15.5); LYMPH # 2.9 10^3/uL (1.5-5.0); LYMPH % 37.8 % (24.0-44.0); MEAN CORPUSCULAR HEMOGLOBIN 30.8 pg (27.0-33.0); MEAN CORPUSCULAR HGB CONC 31.7 g/dl (32.0-36.5); MEAN CORPUSCULAR VOLUME 97.4 fl (80.0-96.0); MONO # 0.4 10^3/uL (0.0-0.8); MONO % 4.9 % (2.0-8.0); NEUTROPHILS % 53.3 % (36.0-66.0); PLATELET COUNT, AUTOMATED 351 10^3/uL (150-450); RED BLOOD COUNT 4.28 10^6/uL (4.00-5.40); WHITE BLOOD COUNT 7.5 10^3/uL (4.0-10.0)
[2023-06-28 13:16] LABS: ALBUMIN 3.8 G/DL (3.2-5.2); ALKALINE PHOSPHATASE 116 U/L (46-116); ALT/SGPT 27 U/L (7.0-40); AST/SGOT 14 U/L (<34); BILIRUBIN,TOTAL 0.4 MG/DL (0.3-1.2); BLOOD UREA NITROGEN 12 MG/DL (9-23); CALCIUM LEVEL 9.2 MG/DL (8.5-10.1); CARBON DIOXIDE LEVEL 30 MMOL/L (20-31); CHLORIDE LEVEL 107 MMOL/L (98-107); CHOLESTEROL LEVEL 229 MG/DL (<200); CHOLESTEROL RISK RATIO 3.45 (<5); CREATININE FOR GFR 0.74 MG/DL (0.55-1.30); GLOMERULAR FILTRATION RATE > 60.0 (>51); GLUCOSE, FASTING 90 MG/DL (60-100); HDL CHOLESTEROL 66.2 MG/DL (>40); LDL CHOLESTEROL 130.8 MG/DL (<100); NON-HDL-C 162.8 MG/DL; POTASSIUM SERUM 4.1 MMOL/L (3.5-5.1); SODIUM LEVEL 142 MMOL/L (136-145); TOTAL PROTEIN 6.2 G/DL (5.7-8.2); TRIGLYCERIDES LEVEL 160 MG/DL (<150)
[2023-06-28 13:17] LABS: TOTAL 25(OH) VITAMIN D 24.1 NG/ML (20.0-100.0)
== END ==
LOC: M SFHCADAM 07:37
PROVIDERS: ATTEND Physician Assistant Medical
DX: E55.9 Vitamin D deficiency, unspecified (principal); H10.13 Acute atopic conjunctivitis, bilateral; Z13.220 Encounter for screening for lipoid disorders; Z13.0 Encounter for screening for diseases of the blood and blood-forming organs and certain disorders involving the immune mechanism

== ENCOUNTER → 2023-12-09 | Outpatient (REF) | payer BC ==
[2023-12-11 16:07] LABS: HPV APTIMA Not Detected (Not Detected)
== END ==
LOC: M SFHCWAGY 15:25
PROVIDERS: ATTEND Obstetrics & Gynecology
DX: Z12.4 Encounter for screening for malignant neoplasm of cervix (principal)
CPT/HCPCS: 87624; G0123

== ENCOUNTER → 2023-12-09 | Outpatient (CLI) | payer BC | LOC: M WHC 09:29 | PROVIDERS: ATTEND Obstetrics & Gynecology | DX: Z12.31 Encounter for screening mammogram for malignant neoplasm of breast (principal) ==

== ENCOUNTER → 2024-07-04 | Outpatient (REF) | payer BC ==
[2024-07-04 14:50] LABS: BASO # 0.1 10^3/uL (0.0-0.2); BASO % 1.2 % (0.0-1.0); EOS # 0.1 10^3/uL (0.0-0.5); EOS % 1.6 % (0.0-3.0); HEMATOCRIT 43.2 % (36.0-47.0); HEMOGLOBIN 13.7 g/dl (12.0-15.5); LYMPH # 2.6 10^3/uL (1.5-5.0); LYMPH % 34.4 % (24.0-44.0); MEAN CORPUSCULAR HEMOGLOBIN 31.3 pg (27.0-33.0); MEAN CORPUSCULAR HGB CONC 31.7 g/dl (32.0-36.5); MEAN CORPUSCULAR VOLUME 98.6 fl (80.0-96.0); MONO # 0.4 10^3/uL (0.0-0.8); MONO % 5.4 % (2.0-8.0); NEUTROPHILS # 4.3 10^3/uL (1.5-8.5); NEUTROPHILS % 57.3 % (36.0-66.0); PLATELET COUNT, AUTOMATED 339 10^3/uL (150-450); RED BLOOD COUNT 4.38 10^6/uL (4.00-5.40); WHITE BLOOD COUNT 7.5 10^3/uL (4.0-10.0)
[2024-07-04 14:58] LABS: ALBUMIN 3.8 G/DL (3.2-5.2); ALKALINE PHOSPHATASE 125 U/L (35-104); ALT/SGPT 32 U/L (7.0-40); AST/SGOT 16 U/L (<34); BILIRUBIN,TOTAL 0.5 MG/DL (0.3-1.2); BLOOD UREA NITROGEN 15 MG/DL (9-23); CALCIUM LEVEL 9.2 MG/DL (8.3-10.6); CARBON DIOXIDE LEVEL 29 MMOL/L (20-31); CHLORIDE LEVEL 107 MMOL/L (98-107); CHOLESTEROL LEVEL 264 MG/DL (<200); CHOLESTEROL RISK RATIO 3.46 (<5); CREATININE FOR GFR 0.86 MG/DL (0.55-1.30); GLOMERULAR FILTRATION RATE > 60.0 (>45); GLUCOSE, FASTING 88 MG/DL (74-106); HDL CHOLESTEROL 76.1 MG/DL (>40); LDL CHOLESTEROL 165.3 MG/DL (<100); NON-HDL-C 187.9 MG/DL; POTASSIUM SERUM 4.5 MMOL/L (3.5-5.1); SODIUM LEVEL 144 MMOL/L (136-145); TOTAL PROTEIN 6.6 G/DL (5.7-8.2); TRIGLYCERIDES LEVEL 113 MG/DL (<150)
[2024-07-04 14:59] LABS: TOTAL 25(OH) VITAMIN D 35.6 NG/ML (20.0-100.0)
== END ==
LOC: M SFHCADAM 08:08
PROVIDERS: ATTEND Physician Assistant Medical
DX: Z00.00 Encounter for general adult medical examination without abnormal findings (principal); K21.9 Gastro-esophageal reflux disease without esophagitis; E55.9 Vitamin D deficiency, unspecified; K59.01 Slow transit constipation; Z13.220 Encounter for screening for lipoid disorders

== ENCOUNTER → 2024-12-11 | Outpatient (CLI) | payer BC | LOC: M WHC 09:24 | PROVIDERS: ATTEND Physician Assistant Medical | DX: Z12.31 Encounter for screening mammogram for malignant neoplasm of breast (principal); E78.49 Other hyperlipidemia; R92.333 Mammographic heterogeneous density, bilateral breasts ==

== ENCOUNTER → 2025-04-23 | Outpatient (REF) | payer BC ==
[2025-04-25 13:37] LABS: HPV APTIMA Not Detected (Not Detected)
== END ==
LOC: M SFHCWAGY 10:09
PROVIDERS: ATTEND Obstetrics & Gynecology
DX: Z12.4 Encounter for screening for malignant neoplasm of cervix (principal); Z77.9 Other contact with and (suspected) exposures hazardous to health
CPT/HCPCS: 87624; G0123